=== PATIENT | female | born 1960 | race Caucasian/White ===

== ENCOUNTER 2019-09-01 22:29 | Emergency (ER) | payer MEDICARE, MEDICAID, SELFPAY ==
[2019-09-01 22:31] VITALS: BP 139/76; PULSE 103; RESP 18; TEMP 36.1; O2SAT 98; BMI 32.5
--- NOTE | 2019-09-01 23:27 | EKG12_ITS ---
Test Reason : CP Blood Pressure : / mmHG Vent. Rate : 081 BPM Atrial Rate : 081 BPM P-R Int : 128 ms QRS Dur : 068 ms QT Int : 364 ms P-R-T Axes : 042 -32 011 degrees QTc Int : 422 ms Normal sinus rhythm Left axis deviation Abnormal ECG Confirmed by JACKI REECE, SURYA ([id number]), multimedia editor LIT CARABALLO ([id number]) on 09/04/2019 11:13:49 AM Referred By: WILIAN Confirmed By:SURYA ECHEVERRIA MD
[2019-09-01] MEDS: Aspirin 81 MG TAB.CHEW 324 MG PO (23:41)
--- NOTE | 2019-09-01 23:52 | RAD_ITS ---
STUDY: X-RAY CHEST REASON FOR EXAM: Female, 58 years old. CHEST PAIN X3 DAYS TECHNIQUE: Single AP portable view of the chest. COMPARISON: None. FINDINGS: There are superimposed monitor leads. The lungs are clear and expanded. There is no demonstrated pleural abnormality. Normal size heart. Normal mediastinum and jessa. Normal visualized pulmonary arteries. Normal visualized aortic arch and descending thoracic aorta. Normal visualized thoracic spine. Normal visualized ribs, clavicles, and shoulders. There is no demonstrated abnormality of the visualized soft tissue structures of the upper abdomen. RAD/Chest 1 View (Portable) IMPRESSION: No pulmonary edema, congestive heart failure or confluent pneumonia. Electronically Signed: Pamella Boyer MD at 0:14 EDT , Service support ,
[2019-09-01 23:55] LABS: Absolute Lymphocyte Count 2.09 X10^3/uL (0.83-4.51); Absolute Neutrophil Count 9.7 X10^3/uL (2.0-7.7); Basophil# 0.01 X10^3/uL; Basophil% 0.1 % (0-1); Eosinophil# 0.11 X10^3/uL; Eosinophils% 0.8 % (0-5); Hematocrit 40.6 % (37-47); Hemoglobin 13.4 g/dL (12.0-15.0); Lymphocyte # 2.09 X10^3/ul (4.0); Lymphocyte % 16.1 % (19-41); Mean Corpuscular Hgb 29.7 pg (27.0-32.0); Mean Platelet Vol. 10.4 fl (6.2-12.0); Monocyte# 1.02 X10^3/uL; Monocyte% 7.9 % (0-10); NRBC Flagged by Analyzer 0 % (0-5); Neutrophil # 9.65 X10^3/uL (2.7-7.7); Neutrophil % 74.5 % (47-70); Platelet Count 251 K/mm3 (150-450); RBC Distribution Width CV 13.8 % (11.6-14.6); RBC Distribution Width SD 44.8 fl (35.1-43.9); Red Blood Count 4.51 M/mm3 (4.2-5.4)
[2019-09-02 00:12] LABS: Anion Gap 4 (5-15); BUN 19 mg/dL (7-18); BUN/Creat Ratio 20.8 RATIO (10-20); Calcium,Total 8.7 mg/dL (8.5-10.1); Chloride 104 mmol/L (98-107); Creatinine, Serum 0.92 mg/dL (0.55-1.02); EST Glomerular Filtration Rate 67 mL/min (>60); Est Glom Filt Rate - Afr Amer 81 mL/min (>60); Estimated Creatinine Clearance 47.29 ml/min; Glucose 118 mg/dL (74-106); Potassium 3.8 mmol/L (3.5-5.1); Sodium Level 139 mmol/L (136-145)
[2019-09-02 00:30] VITALS: BP 124/71; PULSE 82; RESP 18; O2SAT 100
[2019-09-02 02:00] VITALS: BP 113/72; PULSE 75; RESP 15; O2SAT 94
--- NOTE | 2019-09-02 02:22 | ED.VISSUMM ---
- ER Visit Summary Date of Service: 09/02/19 Chief Complaint: Chest pain History of Present Illness: The patient is a 58 F who presents with chest pain that is been constant for the past 4 days. Patient states the pain waxes and wanes. Patient states the pain is over the substernal area. Patient states it got worse after taking ibuprofen. Patient denies any nausea or vomiting. Patient denies any diaphoresis. Patient denies any shortness of breath. Patient denies any cough or fever. Patient has a history of hypercholesterolemia but denies any other cardiac risk factors. Patient denies any PE risk factors. Physical Examination: Vital signs are stable. Patient is afebrile. Patient is in no acute distress. Oral mucosa is pink and moist. Neck is supple. Trachea is midline. There is no JVD noted. Heart was regular rate and rhythm. Lungs are clear and equal bilaterally. Abdomen is soft. Bowel sounds are normal. There is no tenderness. There is no rebound or guarding noted. Skin is warm dry. Cranial nerves II through XII are intact. There are no focal motor or sensory deficits noted. Extremities are intact. There is no calf tenderness. Test Results: EKG showed normal sinus rhythm with a rate of 81. There are no acute ST or T wave changes. Portable chest x-ray was obtained. There is no acute cardiopulmonary process. CBC shows a slight leukocytosis of 13.0. Basic metabolic profile was within normal limits. Troponin was normal. Emergency Department Course and Treatment: Patient was feeling better on reevaluation. Patient has a HEART score of 2. Patient has a CAROL ANN risk score of 0. Patient was advised that this is low risk for acute cardiac event. Patient was instructed to follow-up with her primary care physician in 5 to 7 days. Patient understood and was agreeable with the plan. All questions were answered. Disposition: Discharge home Impression: Chest pain This note was generated with [employer] dictation software. It may contain incorrect words, spelling, and punctuation that were not noted in review of the chart prior to signing ED Disposition - Plan for ED Patient: Disposition: Home or Assisted Living Diagnosis: Chest pain of uncertain etiology Instructions: ED Chest Pain Atypical Unkn Cause Referrals: Zane Echevarria [Primary Care Provider] - 5-7 Days
[2019-09-02 02:31] VITALS: BP 113/72; PULSE 74; RESP 18; O2SAT 95
== END 2019-09-02 02:32 | disposition home or self-care (01) ==
PROVIDERS: Emergency Provider Emergency Medicine; PCP Internal Medicine
DX: R07.9 Chest pain, unspecified (principal); E78.00 Pure hypercholesterolemia, unspecified; M19.90 Unspecified osteoarthritis, unspecified site; F31.9 Bipolar disorder, unspecified; Z79.899 Other long term (current) drug therapy
CPT/HCPCS: 71045; 80048; 84484; 85025; 93005; 99285; A4216

== ENCOUNTER → 2020-02-06 | Outpatient (CLI) | payer MEDICARE, BC, MEDICAID, SELFPAY ==
[2020-02-06 10:29] VITALS: BMI 32.5
[2020-02-06 12:31] LABS: T4 Free Direct 0.95 ng/dL (0.76-1.46); Thyroid Stim Hormone (TSH) 2.04 uIU/mL (0.358-3.74)
== END | disposition home or self-care (01) ==
LOC: BIMLAB 10:55
PROVIDERS: PCP Internal Medicine; Referring Provider Internal Medicine Endocrinology, Diabetes & Metabolism; Visit Provider Internal Medicine Endocrinology, Diabetes & Metabolism
DX: E06.3 Autoimmune thyroiditis (principal)
CPT/HCPCS: 36415; 84439; 84443

== ENCOUNTER 2021-01-07 12:53 | Outpatient (RCR) | payer MEDICARE, BC, SELFPAY ==
--- NOTE | 2021-01-07 14:39 | HP.OTEVAL_ITS ---
Patient's Visit Information DANIEL HOFF is a 60 year old F, referred to Occupational Therapy by Dr. Zane Echevarria MD, with a diagnosis of BLE lymphedema. Date of Evaluation: 01/07/21 Occupational Therapist: Marisa Wells, OTR/L, CHT - Subjective This 60 year old female was seen for OT with dx of bilateral LE lymphedema- pt states she has had swelling in her LE since 2018. pt states she wears compression socks knee high but not sure what compression class they are- pt states they are old. Pt states she had compression hose but they were difficult getting them on. pt denies dx of cellulitis. pt states she is retied on disability. pt states she is using a recliner her legs a little better- pt states she did loose about 50# and has gained 30# back- pt states sister has he concerned with her swelling and she would like to know what she can do to mtg her swelling. - Lymphedema (Circumferential Measure) Mid-foot: right 21.5 left 22cm Ankle: right 25cm left 26cm Lower calf: right 35cm left 35cm Largest calf: right 44cm left 44cm Below knee: right 38cm left 39cm - Lower Limb Functional Index Lower Extremity Functional Score: 31 - Goals Demonstrate a 20% reduction in edema by d/c: Yes Demonstrate adequate knowledge of self-massage by 2nd week: Yes Demonstrate adequate knowledge skin care/prec by 2nd week: Yes Demonstrate adequate knowledge therapeutic exercises by d/c: Yes Select approp compression garment w/donning/care/wear by d/c: Yes Voice need to replace compression garment every 4-6mo by dc: Yes - Rehabilitation General Assessment: pt demo with stage 1 lymphedema in bilateral LE. pt skin soft and supple. Pt demo need for skilled OT services 2 visits to ed. pt on lymph ex, manual lymph massage- beneficial exercises and skin care. Rehabilitation Potential: Questionable - Anticipated Interventions Education re Diagnosis, Education re Life-long lymphedema Management, Education re Skin Care and Precautions, Education re Self Massage Techniques, Education re Correct Donning Tech,Care&Wearing Sched Comp Garments, Home Program - Visit Plan TEXT: Thank you for the opportunity to evaluate your patient. For Medicare and Medicare HMO plans, please review the plan of care and approve it. It will need to be FAXED BACK to us at [phone] for Medicare purposes. Please let me know if there are questions or concerns regarding this plan of care. Physician Signature: Date:
--- NOTE | 2021-05-12 09:38 | HP.OT.NRP ---
DANIEL HOFF was seen in my office for initial evaluation on 01/07/21. The following Plan of Care was established for this patient: Anticipated Interventions: Education re Diagnosis, Education re Life-long lymphedema Management, Education re Skin Care and Precautions, Education re Self Massage Techniques, Education re Correct Donning Tech,Care&Wearing Sched Comp Garments, Home Program This patient was last seen in our office 01/07/21. Pertinent comments regarding their Occupational therapy will appear below: pt d/c due to time lapse in services. At this point I will be discontinuing this patient from occupational therapy. I would be happy to see this patient again in the future if found appropriate by the physician. Thank you! Marisa Wells, OTR/L, CHT
== END 2021-01-07 19:00 | disposition home or self-care (01) ==
LOC: OT 12:53
PROVIDERS: PCP Internal Medicine; Referring Provider Internal Medicine; Visit Provider Internal Medicine
DX: I89.0 Lymphedema, not elsewhere classified (principal)
CPT/HCPCS: 97166; 97530

== ENCOUNTER → 2021-04-06 16:01 | Outpatient (CLI) | payer MEDICARE, BC, SELFPAY ==
[2021-04-06 16:45] LABS: Erythrocyte Sedimentation Rate 25 mm/hr (0-30)
[2021-04-06 16:53] LABS: Protein, Urine (Random) < 6.0 mg/dL (<11.9)
[2021-04-06 17:24] LABS: CRP < 2.90 mg/L (0.0-3.0); GGTP 9 U/L (5-55); LDH 187 U/L (84-246)
[2021-04-08 14:51] LABS: Anti-Mitochondrial AB 32.1 Units (0.0-20.0)
[2021-04-08 16:09] LABS: Albumin 4.1 g/dL (2.9-4.4); Alpha-1-Globulins 0.3 g/dL (0.0-0.4); Alpha-2-Globulins 0.8 g/dL (0.4-1.0); Gamma Globulin 0.6 g/dL (0.4-1.8); Immunoglobulin A 162 mg/dL (87-352); Immunoglobulin G 595 mg/dL (586-1602); Immunoglobulin M 134 mg/dL (26-217); PROEL- TOTAL PROTEIN 6.7 g/dL (6.0-8.5)
== END ==
PROVIDERS: PCP Internal Medicine; Visit Provider Internal Medicine Gastroenterology
DX: R74.8 Abnormal levels of other serum enzymes (principal)
CPT/HCPCS: 36415; 82784; 82977; 83516; 83615; 84156; 84165; 85652; 86140; 86334

== ENCOUNTER → 2021-04-16 17:04 | Outpatient (CLI) | payer MEDICARE, BC, SELFPAY ==
--- NOTE | 2021-04-16 17:04 | MRI_ITS ---
STUDY: MRI ABDOMEN AND MRCP WITHOUT CONTRAST REASON FOR EXAM: Female, 60 years old patient with elevated alkaline phosphatase. TECHNIQUE: Standardized fat and water weighted pulse sequences were obtained in all 3 orthogonal planes. Standard MRCP technique was utilized.. 3-D MIP images are included. Multiple images are limited by patient motion. COMPARISON: Prior comparison studies are not available for review at this time. FINDINGS: MRCP: Gall Bladder: Normal with no distention or demonstrated fixed intraluminal filling defect. Cystic duct: Cystic duct was not well visualized. Intrahepatic ducts: Normal visualized intrahepatic ducts with no demonstrated fixed filling defect, dilation or stricture. Common hepatic duct: Normal with no demonstrated fixed filling defect, dilation or stricture. Common bile duct: Normal with no demonstrated fixed filling defect, dilation or stricture. Pancreatic duct: Pancreatic duct was not well visualized. MR ABDOMEN: The visualized lung bases are unremarkable. The visualized portions of the heart are within normal limits. There is hepatomegaly with diffuse hepatic enlargement. Liver measures approximately 20.5 cm in length. Normal spleen. Normal pancreas. Normal bilateral adrenal glands. Normal right kidney. There are multiple left-sided renal cysts with the largest measuring 2.1 cm. There is no obvious hydronephrosis. Normal visualized stomach. There is no obvious dilated bowel or ascites. There is stool visible in the colon. There is non-visualization of the appendix. Normal abdominal aorta. Normal inferior vena cava. Normal retroperitoneum. Normal abdominal wall. Normal osseous structures. MRI/MRCP Abdomen without Contrast IMPRESSION: 1. Hepatomegaly. 2. No sonographic evidence of choledocholithiasis. Electronically Signed: Nalini Stone MD at 6:45 EST , Service support ,
== END ==
PROVIDERS: PCP Internal Medicine; Visit Provider Internal Medicine Gastroenterology
DX: R74.8 Abnormal levels of other serum enzymes (principal)
CPT/HCPCS: 74181

== ENCOUNTER 2021-04-22 09:58 | Outpatient (RCR) | payer SELFPAY | END 2021-05-01 23:59 | LOC: NS 09:58 | PROVIDERS: PCP Internal Medicine | DX: E66.9 Obesity, unspecified (principal) | CPT/HCPCS: 97802 ==

== ENCOUNTER 2021-05-08 14:02 | Outpatient (CLI) | payer MEDICARE, BC, MEDICAID, SELFPAY ==
[2021-05-08 17:24] LABS: AST(SGOT) 17 U/L (15-37); Alanine Aminotransfer ALT/SGPT 27 U/L (13-56); Albumin, Serum 3.6 g/dL (3.2-5.0); Alkaline Phosphatase 119 U/L (45-117); Bilirubin, Direct 0.09 mg/dL (0.00-0.30); CRP < 2.90 mg/L (0.0-3.0); Ferritin 14 ng/mL (8-252); Globulin 3.4 g/dL (2.2-4.2); LDH 171 U/L (84-246)
[2021-05-08 17:27] LABS: Erythrocyte Sedimentation Rate 19 mm/hr (0-30)
[2021-05-08 17:55] LABS: HIV - WCH Non-Reactive (Nonreactive)
[2021-05-08 18:21] LABS: Hemoglobin A1c 5.5 % (3.8-5.6)
[2021-05-13 00:06] LABS: Angiotensin Convert Enzyme 38 U/L (14-82); Ceruloplasmin 26.5 mg/dL (19.0-39.0); Cytoplasmic Ab (C-ANCA) <1:20 titer (Neg:<1:20); HEPATITIS B SURFACE AG Negative (Negative); Hepatitis A IgM Antibody Negative (Negative); Hepatitis B Core AB IgM Negative (Negative)
[2021-05-13 08:50] LABS: AFP, Tumor Marker 1.4 ng/mL (0.0-8.3); Copper, Serum or Plasma 113 ug/dL (80-158); Haptoglobin 230 mg/dL (37-355); Hep C Antibodies 0.1 s/co ratio (0.0-0.9); Perinuclear Ab (P-ANCA) <1:20 titer (Neg:<1:20)
== END 2021-05-08 23:59 | disposition short-term general hospital (02) ==
PROVIDERS: PCP Internal Medicine; Visit Provider Internal Medicine Gastroenterology
DX: R16.0 Hepatomegaly, not elsewhere classified (principal); R74.8 Abnormal levels of other serum enzymes
CPT/HCPCS: 36415; 80074; 80076; 82105; 82164; 82390; 82525; 82728; 83010; 83036; 83615; 85652; 86140; 86256; 86703

== ENCOUNTER 2021-06-09 08:13 | Outpatient (CLI) | payer MEDICARE, BC, SELFPAY ==
--- NOTE | 2021-06-09 08:15 | US_ITS ---
STUDY: ABDOMINAL ULTRASOUND - RIGHT UPPER QUADRANT REASON FOR VISIT: Female, 60 years old hepatomegaly TECHNIQUE: Ultrasound evaluation of the right upper quadrant was performed with real-time and static holder-scale imaging. TECHNICAL QUALITY: Adequate. COMPARISON: None. FINDINGS: Liver: The liver is slightly enlarged and measures 18.5 cm. There is normal echogenicity of the liver. The bile ducts are within normal limits. There is hepatic color flow. The direction of portal flow is hepatopetal. There is no demonstrated mass lesion. Gallbladder: Normal distended gallbladder. The gallbladder wall measures 1.9 mm. There is a negative sonographic Shell''s sign. There is no pericholecystic fluid. There are no gallstones. Common Bile Duct (C.B.D.): The common bile duct measures 3.6 mm. Pancreas: Normal size of the head, body and tail of the pancreas. There is normal echogenicity of the pancreas. There is no demonstrated pancreatic mass or cyst. Right Kidney: Normal size of the right kidney. The right kidney measures 10.4 cm x 5.3 cm x 5.5 cm. Normal renal cortex. The right cortex measures 1.9 cm. There is no demonstrated renal mass or cyst. There is no right hydronephrosis. IMPRESSION: Mild hepatomegaly. Electronically Signed: Ricardo Fowler MD at 9:57 EST , STUDY: ABDOMINAL ULTRASOUND - ELASTOGRAPHY REASON FOR VISIT: Female, 60 years old. Hepatomegaly. TECHNIQUE: Liver stiffness measurements were obtained on a [employer] 85 ultrasound machine using a CA 1-7 probe following the SRU guidelines. 3 measurements were obtained using a 2-D-SWE method. The IQR/M was 23 % suggesting a quality data set. TECHNICAL QUALITY: Adequate. COMPARISON: Comparison is made with prior examination done earlier today. FINDINGS: Liver: Mild hepatomegaly. Median liver stiffness measured 6.1 kPa. US/Liver IMPRESSION: Liver stiffness measures 6.1 kPa compatible with F1 Metavir score. Electronically Signed: Ricardo Fowler MD at 9:59 EST ,
== END 2021-06-09 23:59 | disposition home or self-care (01) ==
LOC: US 08:14
PROVIDERS: PCP Internal Medicine; Referring Provider Internal Medicine Gastroenterology; Visit Provider Internal Medicine Gastroenterology
DX: R16.0 Hepatomegaly, not elsewhere classified (principal)
CPT/HCPCS: 76705; 76981

== ENCOUNTER 2021-06-23 10:30 | Outpatient (RCR) | payer SELFPAY | END 2021-06-29 23:59 | LOC: NS 10:30 | PROVIDERS: PCP Internal Medicine | DX: Z71.3 Dietary counseling and surveillance (principal); E66.9 Obesity, unspecified | CPT/HCPCS: 97803 ==

== ENCOUNTER 2021-07-08 09:24 | Outpatient (RCR) | payer MEDICARE, MEDICAID, BC, SELFPAY | END 2021-07-30 23:59 | LOC: NS 09:24 | PROVIDERS: PCP Internal Medicine | DX: Z71.3 Dietary counseling and surveillance (principal); E66.9 Obesity, unspecified | CPT/HCPCS: 97803 ==

== ENCOUNTER 2021-08-18 09:58 | Outpatient (RCR) | payer MEDICARE, MEDICAID, BC, SELFPAY | END 2021-08-29 23:59 | LOC: NS 09:58 | PROVIDERS: PCP Internal Medicine | DX: Z71.3 Dietary counseling and surveillance (principal); E66.9 Obesity, unspecified; Z68.37 Body mass index [BMI] 37.0-37.9, adult | CPT/HCPCS: 97803 ==

== ENCOUNTER 2021-12-30 14:00 | Outpatient (RCR) | payer MEDICARE, BC, MEDICAID, SELFPAY ==
[2021-12-15 14:09] VITALS: BP 149/66; PULSE 89; RESP 22; TEMP 36.2; BMI 31.7
--- NOTE | 2021-12-15 16:09 | PCM.WC.HP ---
History of Present Illness Date of Service: 12/15/21 Chief Complaint: Swelling in legs bilaterally History of Wound: Patient is a 61-year-old female who presents for swelling in her bilateral lower extremities. She was referred to us by her PCP. She is scheduled to have left knee replacement surgery in January by Dr. Wang. She currently does not have any open wounds. She has a history of ACL repair for left leg, Zuleyka's, arthritis. She currently does not wear compression stockings. Today she denies any fever, chills, nausea or vomiting. She states her appetite is good. Progress of Wound: Bilateral lower extremity edema +2-+3. [facility] Medical History Arthritis Arthritis Bipolar 1 disorder Bipolar disorder Elevated alkaline phosphatase level Enlarged liver Fractures Gastric reflux GERD (gastroesophageal reflux disease) H/O emotional problems High cholesterol History of back problems History of echocardiogram History of edema History of irregular heartbeat History of pain when walking History of stress test Hyperlipidemia Osteopenia Post-menopausal Shortness of breath on exertion Sleep apnea UTI (urinary tract infection) Vision abnormalities Wears glasses Home Medications aripiprazole 15 mg tablet (Abilify) 15 mg PO DAILY 09/02/19 [History Last Taken Unknown] atorvastatin 20 mg tablet 20 mg PO DAILY 09/02/19 [History Last Taken Unknown] benztropine 2 mg tablet 1 mg PO DAILY 09/02/19 [History Last Taken Unknown] calcium carbonate 600 mg calcium (1,500 mg) tablet 630 mg PO TID 09/02/19 [History Last Taken Unknown] omeprazole 20 mg capsule,delayed release 20 mg PO DAILY 09/02/19 [History Last Taken Unknown] ergocalciferol (vitamin D2) 1,250 mcg (50,000 unit) capsule 50,000 unit PO Q21D 02/06/20 [History Last Taken Unknown] mecobalamin (vitamin B12) 1,000 mcg chewable tablet 1,000 mcg PO DAILY 02/03/21 [History Last Taken Unknown] cholecalciferol (vitamin D3) 25 mcg (1,000 unit) capsule (Vitamin D3) 25 mcg PO DAILY 10/02/21 [History Last Taken Unknown] meloxicam 15 mg tablet 15 mg PO DAILY 10/02/21 [History Last Taken Unknown] ursodiol 500 mg tablet 500 mg PO BID 3 months #180 tabs 10/26/21 [Rx Last Taken Unknown] Allergy/AdvReac Type Severity Reaction Status Date / Time lithium Allergy Rash Verified 12/15/21 14:23 Sulfa (Sulfonamide Allergy Angioedema Verified 12/15/21 14:23 Antibiotics) ibuprofen AdvReac CP Verified 12/15/21 14:23 [From NeoProfen (ibuprofen lysn)(PF)] nitrofurantoin AdvReac Nausea/Vom/ Verified 12/15/21 14:23 [From Macrodantin] Diarrhea Family History (Reviewed 12/18/21 @ 16:01 by Brittani Morrow DIRECTOR OF COMMUNICATIONS, DIRECTOR OF COMMUNICATIONS-C) Other Anemia Arthritis Bleeding disorder Cancer Hyperlipidemia Hypertension Thyroid disorder Surgical History (Reviewed 12/18/21 @ 16:01 by Brittani Morrow DIRECTOR OF COMMUNICATIONS, DIRECTOR OF COMMUNICATIONS-C) H/O foot surgery H/O knee surgery History of tonsillectomy Hx of tubal ligation Social History (Reviewed 12/18/21 @ 16:01 by Brittani Morrow DIRECTOR OF COMMUNICATIONS, DIRECTOR OF COMMUNICATIONS-C) Smoking Status: Never smoker alcohol intake: current substance use type: does not use ROS Constitutional Constitutional: Denies fatigue, fever(s), frequent falls or headache(s) Eyes Eyes: Reports requires corrective lenses ENT HEENT: Reports none Cardiovascular Cardiovascular: Reports systems reviewed and no addt'l complaints, except as documented Respiratory/Chest Respiratory/Chest: Reports systems reviewed and no addt'l complaints, except as documented Gastrointestinal Gastrointestinal: Reports heartburn Musculoskeletal Musculoskeletal: Reports systems reviewed and no addt'l complaints, except as documented, arthralgias and difficulty walking Neurologic Neurologic: Reports none Psychiatric Psychiatric: Reports none Endocrine Endocrinology: Reports as per HPI Vital Signs Vital Signs Vital Signs: 12/15/21 14:09 Temperature 97.1 F L Temperature Source Temporal Pulse Rate 89 Respiratory Rate 22 H Blood Pressure 149/66 H Blood Pressure Mean 93 Blood Pressure Source Monitor Weight Weight: 193 lb 7.874 oz Body Mass Index (BMI) 31.7 Physical Exam Const alert, oriented x3 and no apparent distress General Appearance: cooperative HEENT normocephalic Resp normal respiratory effort and normal air movement Auscultation: clear to auscultation bilaterally Cardio regular rate and regular rhythm Extremity normal capillary refill Extremity Narrative: Bilateral lower extremity edema +2. Bilateral pedal pulses +1 Skin no rashes or lesions noted and no wounds Neuro oriented x3 Psych mental status grossly normal Debridement Note Debridement Note No debridement was completed: No debridement was completed today Post-Debridement Measurements and Additional Note: Post-Debridement Measurements/Treatment WC - Nurse 1 - General Ulcer Assessment Start: 12/15/21 13:28 Freq: Status: Active Protocol: LOUANN.DIMITRY Activity Type Activity Date Activity User E-sign Co-sign Detail Recorded Client Recorded Date Recorded By Document 12/15/21 14:09 DL [id number] 12/15/21 14:18 DL Edit Result 12/15/21 14:09 DL (1) [id number] 12/15/21 14:30 DL (1) Height => 5 ft 5.5 in Weight => 193 lb 7.874 oz Weight in Pounds => 193.5 lbs Body Mass Index (BMI) => 31.7 BMI Classification => Obese BSA - Zuleyma => 1.96 12/15/21 14:09 - Today's Visit Information Type of service Initial Visit Arrival Mode Ambulatory Transfer Assistance None Patient Identification Verified (Name & Yes ) Patient Requires Transmission-Based No Precautions Height and Weight Height 5 ft 5.5 in Weight 193 lb 7.874 oz Weight in Pounds 193.5 lbs Body Mass Index (BMI) 31.7 BMI Classification Obese BSA - Zuleyma 1.96 Vital Signs Temperature (97.8 F-99.1 F) 97.1 F L Temperature Source Temporal Pulse Rate (60-100) 89 Pulse Location Monitor Respiratory Rate (12-18) 22 H Respiratory rate source Observation Blood Pressure (90/60-120/80) 149/66 H Blood Pressure Mean 93 Source Monitor History Since Last Visit- (Skip if this is Patient's initial visit) Left Footwear Regular Shoe Right Footwear Regular Shoe Pain Scale: 0-10 Numeric Is Patient Pain Free? Yes Lower Extremity Assessment/ Foot Assessment/ Toe Nail Assessment Left -Posterior Tibial Palpable No -Posterior Tibial Doppler Multiphasic -Dorsalis Pedis Palpable No -Dorsalis Pedis Doppler Multiphasic -Extremity Color Normal -Hair Growth on Legs No -Hair Growth on Toes No -Temperature of Extremity Warm -Capillary Refill Greater than 3 Seconds -Dependent Rubor No -Blanched when Elevated No -Lipodermatosclerosis No -Other Deformity No -Prior Foot Ulcer No -Charcot Joint No -Prior Amputation No -Thick Yes -Discolored Yes -Deformed Yes -Improper Length & Hygeine Yes Right -Posterior Tibial Palpable No -Posterior Tibial Doppler Multiphasic -Dorsalis Pedis Palpable No -Dorsalis Pedis Doppler Multiphasic -Extremity Color Normal -Hair Growth on Legs No -Hair Growth on Toes No -Temperature of Extremity Warm -Capillary Refill Greater than 3 Seconds -Dependent Rubor No -Blanched when Elevated No -Lipodermatosclerosis No -Other Deformity No -Prior Foot Ulcer No -Charcot Joint No -Prior Amputation No -Thick Yes -Discolored Yes -Deformed Yes -Improper Length & Hygeine No Neuropathy Assessment Feet - Top Side and Bottom <Entered> (a) Communication Assessment Preferred language [place] Citizen Able to Read Yes Able to Write Yes Right Hearing Abillity Normal Left Hearing Abillity Normal Visual Assistive Devices Glasses Teaching Assessment Preferences Verbal,Written, Demonstration Barriers to Learning None Readiness To Learn Good Willingness to Engage in Self Management Med Activies Readiness to Engage in Self Management Med Activities Anxiety Level Calm Cooperation Cooperative Perception Coherent Interest in Health Problem Asks Questions Education Importance Acknowledges Need Does Patient Smoke tobacco or other No substances Smoking Status Never smoker Is Patient Diabetic No Functional Assessment Recent Decline in Ability to Perform Denies Any Declines Culture/Jewish/Handle Turner Cultural/Jewish Needs that may affect No Treatment Plan Would you allow our hospital cut press operator to No meet you for the purpose of spiritual/ emotional support? Handle Turner to contact place of latter day No Teaching: Wound Center Control Swelling with Leg Elevation -Person Taught Patient Compression Wraps & Stockings -Person Taught Patient *Welcome to the Wound Center -Person Taught Patient (a) 1 - + WC - Nurse 1 - General Ulcer Measurement Start: 12/15/21 13:28 Freq: Status: Active Protocol: Activity Type Activity Date Activity User E-sign Co-sign Detail Recorded Client Recorded Date Recorded By Document 12/15/21 14:09 DL [id number] 12/15/21 14:18 DL 12/15/21 14:09 Wound Center Nurse 1 Right Calf (cm) 45 Right Ankle (cm) 24 Left Calf (cm) 47 Left Ankle (cm) 26 WC - Nurse 2 - General Ulcer CM Notes Start: 12/15/21 13:28 Freq: Status: Active Protocol: Activity Type Activity Date Activity User E-sign Co-sign Detail Recorded Client Recorded Date Recorded By Document 12/15/21 14:44 [id number] 12/15/21 14:52 12/15/21 14:44 Pain Scale: 0-10 Numeric Is Patient Pain Free? Yes WC - Nurse 3 - General Ulcer D/C NN Start: 12/15/21 13:28 Freq: Status: Active Protocol: Activity Type Activity Date Activity User E-sign Co-sign Detail Recorded Client Recorded Date Recorded By Document 12/15/21 15:04 DL [id number] 12/15/21 15:05 DL 12/15/21 15:04 Wound Care Nurse 3 Left -Tubular Bandage Double Layer -Size of Tubigrip Used Size E -Size E ($) 2 Right -Tubular Bandage Double Layer -Size of Tubigrip Used Size E -Size E ($) 2 Treatment Response Procedure Tolerated Well Pain Scale: 0-10 Numeric Is Patient Pain Free? Yes WC - Visit Discharge Discharge Condition Stable Ambulatory Status Ambulatory Transportation Private Auto Charges/Coding Visit Charges Office Visits / Consults: [id number] OV L4 Est Assessment/Plan Assessment/Plan (1) Bilateral edema of lower extremity: CODE(S): R60.0 - Localized edema (2) Lymphedema: CODE(S): I89.0 - Lymphedema, not elsewhere classified PLAN: Plan Patient was seen and evaluated at the wound center today. She has no open wounds, therefore no debridement was performed. She does have bilateral lower extremity edema/lymphedema. Will order arterial and venous studies to determine exactly how much compression she is able to tolerate. Will start with single-layer Tubigrip's for compression. Follow-up 1 week
[2021-12-23 13:07] VITALS: BP 151/84; PULSE 83; TEMP 36.4; BMI 31.7
[2021-12-23 13:39] VITALS: BMI 31.7
--- NOTE | 2021-12-23 15:57 | PN.PCM_ITS ---
History of Present Illness Date of Service: 12/23/21 Chief Complaint: Swelling in legs bilaterally History of Wound: Patient is a 61-year-old female who presents for swelling in her bilateral lower extremities. She was referred to us by her PCP. She is scheduled to have left knee replacement surgery in January by Dr. Wang. She currently does not have any open wounds. She has a history of ACL repair for left leg, Zuleyka's, arthritis. She currently does not wear compression stockings. ABIs done in office today, 12/23/21, right AURELIO - 1.15, left AURELIO - 1.09. Will start her on 3 M 2 layer wraps for compression. Today she denies any fever, chills, nausea or vomiting. She states her appetite is good. Progress of Wound: Bilateral lower extremity edema +2-+3. Not much improvement with the single layer tubigrip. Objective Data Objective Data Vital Signs: Vital Signs Temp Pulse Resp BP 97.6 F L 83 22 H 151/84 H 12/23/21 13:07 12/23/21 13:07 12/15/21 14:09 12/23/21 13:07 Weight: 193 lb 7.874 oz Body Mass Index (BMI) 31.7 Charges/Coding Visit Charges Office Visits / Consults: 11642 OV L3 Est Physical Exam Const alert and oriented x3 General Appearance: cooperative HEENT normocephalic Resp normal respiratory effort and normal air movement Auscultation: clear to auscultation bilaterally Cardio regular rate and regular rhythm Extremity normal capillary refill Extremity Narrative: Bilateral lower extremity edema +2. Bilateral pedal pulses +1 Skin no rashes or lesions noted and no wounds Neuro oriented x3 Psych mental status grossly normal Debridement Note Debridement Note No debridement was completed: No debridement was completed today Post-Debridement Measurements and Additional Note: Post-Debridement Measurements/Treatment WC - Nurse 1 - General Ulcer Assessment Start: 12/15/21 13:28 Freq: Status: Active Protocol: LOWEXT Activity Type Activity Date Activity User E-sign Co-sign Detail Recorded Client Recorded Date Recorded By Document 12/15/21 14:09 DL [id number] 12/15/21 14:18 DL Edit Result 12/15/21 14:09 DL (1) [id number] 12/15/21 14:30 DL Document 12/23/21 13:07 KR [id number] 12/23/21 13:09 KR Document 12/23/21 13:39 AK [id number] 12/23/21 13:39 AK (1) Height => 5 ft 5.5 in Weight => 193 lb 7.874 oz Weight in Pounds => 193.5 lbs Body Mass Index (BMI) => 31.7 BMI Classification => Obese BSA - Zuleyma => 1.96 12/15/21 12/23/21 12/23/21 14:09 13:07 13:39 WC - Today's Visit Information Type of service Initial Visit Follow-up Visit (Physician/MACHINE SHOP INSTRUCTOR ) Arrival Mode Ambulatory Ambulatory Transfer Assistance None Patient Identification Verified (Name & Yes Yes ) Patient Requires Transmission-Based No Precautions Height and Weight Height 5 ft 5.5 in Weight 193 lb 7.874 oz Weight in Pounds 193.5 lbs Body Mass Index (BMI) 31.7 31.7 31.7 BMI Classification Obese Obese Obese BSA - Zuleyma 1.96 Vital Signs Temperature (97.8 F-99.1 F) 97.1 F L 97.6 F L Temperature Source Temporal Temporal Pulse Rate (60-100) 89 83 Pulse Location Monitor Monitor Respiratory Rate (12-18) 22 H Respiratory rate source Observation Blood Pressure (90/60-120/80) 149/66 H 151/84 H Blood Pressure Mean (mm Hg) 93 106 Source Monitor Monitor Position Semi-Fowlers Blood Pressure Location Right Arm History Since Last Visit- (Skip if this is Patient's initial visit) Have you changed medications since your No last visit? Any new allergies or adverse reactions No Had a fall/change in ADL's that may No increase risk of falls Signs or symptoms of abuse and/or No neglect since last visit Have you been in the hospital since your No last visit? Has dressing in place as prescribed No Has compression in place as prescribed Yes Has offloadiing in place as prescribed N/A Experienced any changes in pain level or No management Left Footwear Regular Shoe Regular Shoe Right Footwear Regular Shoe Regular Shoe Pain Scale: 0-10 Numeric Is Patient Pain Free? Yes Yes Yes Lower Extremity Assessment/ Foot Assessment/ Toe Nail Assessment Left -Posterior Tibial Palpable No -Posterior Tibial Doppler Multiphasic -Dorsalis Pedis Palpable No -Dorsalis Pedis Doppler Multiphasic -Extremity Color Normal -Hair Growth on Legs No -Hair Growth on Toes No -Temperature of Extremity Warm -Capillary Refill Greater than 3 Seconds -Dependent Rubor No -Blanched when Elevated No -Lipodermatosclerosis No -Other Deformity No -Prior Foot Ulcer No -Charcot Joint No -Prior Amputation No -Thick Yes -Discolored Yes -Deformed Yes -Improper Length & Hygeine Yes Right -Posterior Tibial Palpable No -Posterior Tibial Doppler Multiphasic -Dorsalis Pedis Palpable No -Dorsalis Pedis Doppler Multiphasic -Extremity Color Normal -Hair Growth on Legs No -Hair Growth on Toes No -Temperature of Extremity Warm -Capillary Refill Greater than 3 Seconds -Dependent Rubor No -Blanched when Elevated No -Lipodermatosclerosis No -Other Deformity No -Prior Foot Ulcer No -Charcot Joint No -Prior Amputation No -Thick Yes -Discolored Yes -Deformed Yes -Improper Length & Hygeine No Neuropathy Assessment Feet - Top Side and Bottom <Entered> (a) Communication Assessment Preferred language Armenian Able to Read Yes Able to Write Yes Right Hearing Abillity Normal Left Hearing Abillity Normal Visual Assistive Devices Glasses Teaching Assessment Preferences Verbal,Written, Demonstration Barriers to Learning None Readiness To Learn Good Willingness to Engage in Self Management Med Activies Readiness to Engage in Self Management Med Activities Anxiety Level Calm Cooperation Cooperative Perception Coherent Interest in Health Problem Asks Questions Education Importance Acknowledges Need Does Patient Smoke tobacco or other No substances Smoking Status Never smoker Is Patient Diabetic No Functional Assessment Recent Decline in Ability to Perform Denies Any Declines Culture/Bahai/Injection Molding Engineer Cultural/Bahai Needs that may affect No Treatment Plan Would you allow our hospital shipyard painting supervisor to No meet you for the purpose of spiritual/ emotional support? Injection Molding Engineer to contact place of moravian No Teaching: Wound Center Control Swelling with Leg Elevation -Person Taught Patient Compression Wraps & Stockings -Person Taught Patient *Welcome to the Wound Center -Person Taught Patient (a) 1 - + WC - Nurse 1 - General Ulcer Measurement Start: 12/15/21 13:28 Freq: Status: Active Protocol: Activity Type Activity Date Activity User E-sign Co-sign Detail Recorded Client Recorded Date Recorded By Document 12/15/21 14:09 DL [id number] 12/15/21 14:18 DL Document 12/23/21 13:07 KR [id number] 12/23/21 13:09 KR 12/15/21 12/23/21 14:09 13:07 Wound Center Nurse 1 Right Calf (cm) 45 48.8 Right Ankle (cm) 24 29 Left Calf (cm) 47 49.2 Left Ankle (cm) 26 28.8 WC - Nurse 2 - General Ulcer CM Notes Start: 12/15/21 13:28 Freq: Status: Active Protocol: Activity Type Activity Date Activity User E-sign Co-sign Detail Recorded Client Recorded Date Recorded By Document 12/15/21 14:44 JF [id number] 12/15/21 14:52 JF Document 12/23/21 13:34 MW [id number] 12/23/21 13:36 MW 12/15/21 12/23/21 14:44 13:34 Pain Scale: 0-10 Numeric Is Patient Pain Free? Yes Yes WC - Nurse 3 - General Ulcer D/C NN Start: 12/15/21 13:28 Freq: Status: Active Protocol: Activity Type Activity Date Activity User E-sign Co-sign Detail Recorded Client Recorded Date Recorded By Document 12/15/21 15:04 DL [id number] 12/15/21 15:05 DL Document 12/23/21 14:26 KR [id number] 12/23/21 14:26 KR 12/15/21 12/23/21 15:04 14:26 Wound Care Nurse 3 Left -Multi-Layered Wrap Application Multi-Layer Comp - Bilat ($ ) -Tubular Bandage Double Layer -Size of Tubigrip Used Size E -Size E ($) 2 Right -Tubular Bandage Double Layer -Size of Tubigrip Used Size E -Size E ($) 2 Treatment Response Procedure Tolerated Well Pain Scale: 0-10 Numeric Is Patient Pain Free? Yes Yes WC - Visit Discharge Discharge Condition Stable Stable Ambulatory Status Ambulatory Ambulatory Transportation Private Auto Private Auto Accompanied by Assessment/Plan Assessment/Plan (1) Bilateral edema of lower extremity: CODE(S): R60.0 - Localized edema (2) Lymphedema: CODE(S): I89.0 - Lymphedema, not elsewhere classified PLAN: Plan Patient was seen and evaluated at the wound center today. She has no open wounds, therefore no debridement was performed. She does have bilateral lower extremity edema/lymphedema. ABIs done in office today, 12/23/21, right AURELIO - 1.15, left AURELIO - 1.09. Will start her on 3 M 2 layer wraps for compression. Follow up on Tuesday for a nurse's visit to have 3M 2 layer wraps redone. Follow- up 1 week with me.
[2021-12-25 13:18] VITALS: BP 139/69; BMI 31.7
[2021-12-30 13:56] VITALS: BP 143/82; PULSE 88; TEMP 36.5; BMI 31.7
--- NOTE | 2021-12-30 16:07 | PCM.WC.PN ---
History of Present Illness Date of Service: 12/30/21 Chief Complaint: Swelling in legs bilaterally History of Wound: Patient is a 61-year-old female who presents for swelling in her bilateral lower extremities. She was referred to us by her PCP. She is scheduled to have left knee replacement surgery in January by Dr. Wang. She currently does not have any open wounds. She has a history of ACL repair for left leg, Zuleyka's, arthritis. She currently does not wear compression stockings. ABIs done in office today, 12/23/21, right AURELIO - 1.15, left AURELIO - 1.09. Will start her on 3 M 2 layer wraps for compression. Today she denies any fever, chills, nausea or vomiting. She states her appetite is good. Progress of Wound: Bilateral lower extremity edema +2. Will continue the 3M 2 layer wraps until her Juxtalite compression stockings come in. Objective Data Objective Data Vital Signs: Vital Signs Temp Pulse Resp BP 97.7 F L 88 22 H 143/82 H 12/30/21 13:56 12/30/21 13:56 12/15/21 14:09 12/30/21 13:56 Weight: 193 lb 7.874 oz Body Mass Index (BMI) 31.7 Charges/Coding Visit Charges Office Visits / Consults: [id number] OV L3 Est Physical Exam Const alert and oriented x3 General Appearance: cooperative HEENT normocephalic Resp normal respiratory effort and normal air movement Cardio regular rate Extremity normal capillary refill Extremity Narrative: Bilateral lower extremity edema +2. Bilateral pedal pulses +1 Skin no rashes or lesions noted and no wounds Neuro oriented x3 Psych mental status grossly normal Debridement Note Debridement Note No debridement was completed: No debridement was completed today Post-Debridement Measurements and Additional Note: Post-Debridement Measurements/Treatment LOUANN - Nurse 1 - General Ulcer Assessment Start: 12/15/21 13:28 Freq: Status: Active Protocol: ENOCH Activity Type Activity Date Activity User E-sign Co-sign Detail Recorded Client Recorded Date Recorded By Document 12/15/21 14:09 DL [id number] 12/15/21 14:18 DL Edit Result 12/15/21 14:09 DL (1) [id number] 12/15/21 14:30 DL Document 12/23/21 13:07 KR [id number] 12/23/21 13:09 KR Document 12/23/21 13:39 AK [id number] 12/23/21 13:39 AK Document 12/25/21 13:18 AK [id number] 12/25/21 13:21 AK Document 12/30/21 13:56 BMF [id number] 12/30/21 14:02 BMF (1) Height => 5 ft 5.5 in Weight => 193 lb 7.874 oz Weight in Pounds => 193.5 lbs Body Mass Index (BMI) => 31.7 BMI Classification => Obese BSA - Zuleyma => 1.96 12/15/21 12/23/21 12/23/21 14:09 13:07 13:39 WC - Today's Visit Information Type of service Initial Visit Follow-up Visit (Physician/COOK'S ASSISTANT ) Arrival Mode Ambulatory Ambulatory Transfer Assistance None Patient Identification Verified (Name & Yes Yes ) Patient Requires Transmission-Based No Precautions Safety Precautions Height and Weight Height 5 ft 5.5 in Weight 193 lb 7.874 oz Weight in Pounds 193.5 lbs Body Mass Index (BMI) 31.7 31.7 31.7 BMI Classification Obese Obese Obese BSA - Zuleyma 1.96 Vital Signs Temperature (97.8 F-99.1 F) 97.1 F L 97.6 F L Temperature Source Temporal Temporal Pulse Rate (60-100) 89 83 Pulse Location Monitor Monitor Respiratory Rate (12-18) 22 H Respiratory rate source Observation Blood Pressure (90/60-120/80) 149/66 H 151/84 H Blood Pressure Mean (mm Hg) 93 106 Source Monitor Monitor Position Semi-Fowlers Blood Pressure Location Right Arm History Since Last Visit- (Skip if this is Patient's initial visit) Have you changed medications since your No last visit? Any new allergies or adverse reactions No Had a fall/change in ADL's that may No increase risk of falls Signs or symptoms of abuse and/or No neglect since last visit Have you been in the hospital since your No last visit? Has dressing in place as prescribed No Has compression in place as prescribed Yes Has offloadiing in place as prescribed N/A Experienced any changes in pain level or No management Left Footwear Regular Shoe Regular Shoe Right Footwear Regular Shoe Regular Shoe Pain Scale: 0-10 Numeric Is Patient Pain Free? Yes Yes Yes Lower Extremity Assessment/ Foot Assessment/ Toe Nail Assessment Left -Posterior Tibial Palpable No -Posterior Tibial Doppler Multiphasic -Dorsalis Pedis Palpable No -Dorsalis Pedis Doppler Multiphasic -Extremity Color Normal -Hair Growth on Legs No -Hair Growth on Toes No -Temperature of Extremity Warm -Capillary Refill Greater than 3 Seconds -Dependent Rubor No -Blanched when Elevated No -Lipodermatosclerosis No -Other Deformity No -Prior Foot Ulcer No -Charcot Joint No -Prior Amputation No -Thick Yes -Discolored Yes -Deformed Yes -Improper Length & Hygeine Yes Right -Posterior Tibial Palpable No -Posterior Tibial Doppler Multiphasic -Dorsalis Pedis Palpable No -Dorsalis Pedis Doppler Multiphasic -Extremity Color Normal -Hair Growth on Legs No -Hair Growth on Toes No -Temperature of Extremity Warm -Capillary Refill Greater than 3 Seconds -Dependent Rubor No -Blanched when Elevated No -Lipodermatosclerosis No -Other Deformity No -Prior Foot Ulcer No -Charcot Joint No -Prior Amputation No -Thick Yes -Discolored Yes -Deformed Yes -Improper Length & Hygeine No Neuropathy Assessment Feet - Top Side and Bottom <Entered> (a) Communication Assessment Preferred language Tajik Able to Read Yes Able to Write Yes Right Hearing Abillity Normal Left Hearing Abillity Normal Visual Assistive Devices Glasses Teaching Assessment Preferences Verbal,Written, Demonstration Barriers to Learning None Readiness To Learn Good Willingness to Engage in Self Management Med Activies Readiness to Engage in Self Management Med Activities Anxiety Level Calm Cooperation Cooperative Perception Coherent Interest in Health Problem Asks Questions Education Importance Acknowledges Need Does Patient Smoke tobacco or other No substances Smoking Status Never smoker Is Patient Diabetic No Functional Assessment Recent Decline in Ability to Perform Denies Any Declines Culture/Adventist/Commissary Helper Cultural/Adventist Needs that may affect No Treatment Plan Would you allow our hospital publishing manager to No meet you for the purpose of spiritual/ emotional support? Commissary Helper to contact place of nondenominational No Teaching: Wound Center Control Swelling with Leg Elevation -Person Taught Patient Compression Wraps & Stockings -Person Taught Patient *Welcome to the Wound Center -Person Taught Patient 12/25/21 12/30/21 13:18 13:56 WC - Today's Visit Information Type of service Nurse-only Follow-up Visit Visit (Physician/COOK'S ASSISTANT ) Arrival Mode Ambulatory Ambulatory Transfer Assistance Patient Identification Verified (Name & Yes Yes ) Patient Requires Transmission-Based Yes Precautions Safety Precautions NA Height and Weight Height Weight Weight in Pounds Body Mass Index (BMI) 31.7 31.7 BMI Classification Obese Obese BSA - Zuleyma Vital Signs Temperature (97.8 F-99.1 F) 97.7 F L Temperature Source Temporal Pulse Rate (60-100) 88 Pulse Location Monitor Respiratory Rate (12-18) Respiratory rate source Blood Pressure (90/60-120/80) 139/69 H 143/82 H Blood Pressure Mean (mm Hg) 92 102 Source Monitor Monitor Position Semi-Fowlers Blood Pressure Location Left Arm History Since Last Visit- (Skip if this is Patient's initial visit) Have you changed medications since your No No last visit? Any new allergies or adverse reactions No No Had a fall/change in ADL's that may No No increase risk of falls Signs or symptoms of abuse and/or No No neglect since last visit Have you been in the hospital since your No No last visit? Has dressing in place as prescribed Yes Yes Has compression in place as prescribed Yes Yes Has offloadiing in place as prescribed N/A N/A Experienced any changes in pain level or No No management Left Footwear Regular Shoe Regular Shoe Right Footwear Regular Shoe Regular Shoe Pain Scale: 0-10 Numeric Is Patient Pain Free? Yes Yes Lower Extremity Assessment/ Foot Assessment/ Toe Nail Assessment Left -Posterior Tibial Palpable -Posterior Tibial Doppler -Dorsalis Pedis Palpable -Dorsalis Pedis Doppler -Extremity Color -Hair Growth on Legs -Hair Growth on Toes -Temperature of Extremity -Capillary Refill -Dependent Rubor -Blanched when Elevated -Lipodermatosclerosis -Other Deformity -Prior Foot Ulcer -Charcot Joint -Prior Amputation -Thick -Discolored -Deformed -Improper Length & Hygeine Right -Posterior Tibial Palpable -Posterior Tibial Doppler -Dorsalis Pedis Palpable -Dorsalis Pedis Doppler -Extremity Color -Hair Growth on Legs -Hair Growth on Toes -Temperature of Extremity -Capillary Refill -Dependent Rubor -Blanched when Elevated -Lipodermatosclerosis -Other Deformity -Prior Foot Ulcer -Charcot Joint -Prior Amputation -Thick -Discolored -Deformed -Improper Length & Hygeine Neuropathy Assessment Feet - Top Side and Bottom Communication Assessment Preferred language Able to Read Able to Write Right Hearing Abillity Left Hearing Abillity Visual Assistive Devices Teaching Assessment Preferences Barriers to Learning Readiness To Learn Willingness to Engage in Self Management Activies Readiness to Engage in Self Management Activities Anxiety Level Cooperation Perception Interest in Health Problem Education Importance Does Patient Smoke tobacco or other substances Smoking Status Is Patient Diabetic Functional Assessment Recent Decline in Ability to Perform Culture/Adventist/Commissary Helper Cultural/Adventist Needs that may affect Treatment Plan Would you allow our hospital publishing manager to meet you for the purpose of spiritual/ emotional support? Commissary Helper to contact place of nondenominational Teaching: Wound Center Control Swelling with Leg Elevation -Person Taught Compression Wraps & Stockings -Person Taught *Welcome to the Wound Center -Person Taught (a) 1 - + WC - Nurse 1 - General Ulcer Measurement Start: 12/15/21 13:28 Freq: Status: Active Protocol: Activity Type Activity Date Activity User E-sign Co-sign Detail Recorded Client Recorded Date Recorded By Document 12/15/21 14:09 DL [id number] 12/15/21 14:18 DL Document 12/23/21 13:07 KR [id number] 12/23/21 13:09 KR Document 12/30/21 13:56 BMF [id number] 12/30/21 14:02 BMF 12/15/21 12/23/21 12/30/21 14:09 13:07 13:56 Wound Center Nurse 1 Right Calf (cm) 45 48.8 44.8 Right Ankle (cm) 24 29 24.1 Left Calf (cm) 47 49.2 44.1 Left Ankle (cm) 26 28.8 24.7 WC - Nurse 2 - General Ulcer CM Notes Start: 12/15/21 13:28 Freq: Status: Active Protocol: Activity Type Activity Date Activity User E-sign Co-sign Detail Recorded Client Recorded Date Recorded By Document 12/15/21 14:44 JF [id number] 12/15/21 14:52 JF Document 12/23/21 13:34 MW [id number] 12/23/21 13:36 MW Document 12/30/21 14:47 MW [id number] 12/30/21 14:58 MW 12/15/21 12/23/21 12/30/21 14:44 13:34 14:47 Pain Scale: 0-10 Numeric Is Patient Pain Free? Yes Yes Yes WC - Nurse 3 - General Ulcer D/C NN Start: 12/15/21 13:28 Freq: Status: Active Protocol: Activity Type Activity Date Activity User E-sign Co-sign Detail Recorded Client Recorded Date Recorded By Document 12/15/21 15:04 DL [id number] 12/15/21 15:05 DL Document 12/23/21 14:26 KR [id number] 12/23/21 14:26 KR Document 12/25/21 13:18 AK [id number] 12/25/21 13:21 AK Document 12/30/21 15:04 BMF [id number] 12/30/21 15:05 BMF 12/15/21 12/23/21 12/25/21 15:04 14:26 13:18 Wound Care Nurse 3 Left -Lotion applied to leg before No compression wrap -Multi-Layered Wrap Application Multi-Layer Multi-Layer Comp - Bilat ($ Comp - Bilat ($ ) ) -Tubular Bandage Double Layer -Size of Tubigrip Used Size E -Size E ($) 2 -Other Right -Multi-Layered Wrap Application -Tubular Bandage Double Layer -Size of Tubigrip Used Size E -Size E ($) 2 -Other Treatment Response Procedure Tolerated Well Vital Signs Blood Pressure (90/60-120/80) 139/69 H Blood Pressure Mean (mm Hg) 92 Source Monitor Pain Scale: 0-10 Numeric Is Patient Pain Free? Yes Yes Yes WC - Visit Discharge Discharge Condition Stable Stable Stable Ambulatory Status Ambulatory Ambulatory Transportation Private Auto Private Auto Private Auto Accompanied by Medication Reconcilliation completed & Yes provided to patient/care provider Clinical Summary of Care Provided Yes 12/30/21 15:04 Wound Care Nurse 3 Left -Lotion applied to leg before compression wrap -Multi-Layered Wrap Application Multi-Layer Comp - Left ($) -Tubular Bandage -Size of Tubigrip Used -Size E ($) -Other 3M PER AK FRONT END DEVELOPER JAVASCRIPT HTML CSS Right -Multi-Layered Wrap Application Multi-Layer Comp - Right ($ ) -Tubular Bandage -Size of Tubigrip Used -Size E ($) -Other 3M PER AK FRONT END DEVELOPER JAVASCRIPT HTML CSS Treatment Response Procedure Tolerated Well Vital Signs Blood Pressure (90/60-120/80) Blood Pressure Mean (mm Hg) Source Pain Scale: 0-10 Numeric Is Patient Pain Free? Yes WC - Visit Discharge Discharge Condition Stable Ambulatory Status Ambulatory Transportation Private Auto Accompanied by Medication Reconcilliation completed & provided to patient/care provider Clinical Summary of Care Provided Assessment/Plan Assessment/Plan (1) Bilateral edema of lower extremity: CODE(S): R60.0 - Localized edema (2) Lymphedema: CODE(S): I89.0 - Lymphedema, not elsewhere classified PLAN: Plan Patient was seen and evaluated at the wound center today. She has no open wounds, therefore no debridement was performed. She does have bilateral lower extremity edema/lymphedema. ABIs done in office on 12/23/21, right AURELIO - 1.15, left AURELIO - 1.09. Will start her on 3 M 2 layer wraps for compression. Follow up one week or come in sooner for a nurses visit if she obtains her compression stockings to be shown how to put them on.
== END 2021-12-30 23:59 | disposition home or self-care (01) ==
LOC: WC 14:00
PROVIDERS: PCP Internal Medicine; Visit Provider Nurse Practitioner Family
DX: R60.0 Localized edema (principal); F31.9 Bipolar disorder, unspecified; E78.5 Hyperlipidemia, unspecified; I89.0 Lymphedema, not elsewhere classified; G62.9 Polyneuropathy, unspecified; E78.00 Pure hypercholesterolemia, unspecified
CPT/HCPCS: 29581; 99213; G0463

== ENCOUNTER 2022-01-07 13:39 | Outpatient (RCR) | payer MEDICARE, BC, MEDICAID, SELFPAY ==
[2021-12-31 00:44] VITALS: BP 143/82; PULSE 88; RESP 22; TEMP 36.5; BMI 31.7
[2022-01-07 13:40] VITALS: BP 152/72; PULSE 88; RESP 18; TEMP 37.2; BMI 31.7
--- NOTE | 2022-01-07 15:07 | PCM.WC.PN ---
History of Present Illness Date of Service: 01/07/22 Chief Complaint: Swelling in legs bilaterally History of Wound: Patient is a 61-year-old female who presents for swelling in her bilateral lower extremities. She was referred to us by her PCP. She is scheduled to have left knee replacement surgery in January by Dr. Wang. She currently does not have any open wounds. She has a history of ACL repair for left leg, Zuleyka's, arthritis. She currently does not wear compression stockings. ABIs done in office today, 12/23/21, right AURELIO - 1.15, left AUREILO - 1.09. Will start her on 3 M 2 layer wraps for compression. Today she denies any fever, chills, nausea or vomiting. She states her appetite is good. Progress of Wound: Bilateral lower extremity edema is +1-+2, non pitting, which is improved compared to when she first started here. She has her Juxtalite stockings which we will teach her how to use today. Objective Data Objective Data Vital Signs: Vital Signs Temp Pulse Resp BP O2 Del Method 99 F 88 18 152/72 H Room Air 01/07/22 13:40 01/07/22 13:40 01/07/22 13:40 01/07/22 13:40 01/07/22 13:40 Oxygen Delivery Method Room Air Weight: 193 lb 7.874 oz Body Mass Index (BMI) 31.7 Charges/Coding Visit Charges Office Visits / Consults: 00885 OV L3 Est Physical Exam Const alert and oriented x3 General Appearance: cooperative HEENT normocephalic Resp normal respiratory effort and normal air movement Cardio regular rate Extremity normal capillary refill Extremity Narrative: Bilateral lower extremity edema +2. Bilateral pedal pulses +1 Skin no rashes or lesions noted and no wounds Neuro oriented x3 Psych mental status grossly normal Debridement Note Debridement Note No debridement was completed: No debridement was completed today Post-Debridement Measurements and Additional Note: Post-Debridement Measurements/Treatment WC - Nurse 1 - General Ulcer Assessment Start: 01/07/22 13:40 Freq: Status: Active Protocol: LOUANN.BRIANEXT Activity Type Activity Date Activity User E-sign Co-sign Detail Recorded Client Recorded Date Recorded By Document 01/07/22 13:40 [facility] [id number] 01/07/22 13:51 [facility] 01/07/22 13:40 - Today's Visit Information Type of service Follow-up Visit (Physician/MANAGER DELIVERY ) Arrival Mode Ambulatory Transfer Assistance None Accompanied by Patient Identification Verified (Name & Yes ) Patient Requires Transmission-Based No Precautions Height and Weight Body Mass Index (BMI) 31.7 BMI Classification Obese Vital Signs Temperature (97.8 F-99.1 F) 99 F Temperature Source Temporal Pulse Rate (60-100) 88 Pulse Location Monitor Respiratory Rate (12-18) 18 Respiratory rate source Observation Oxygen Delivery Method Room Air Blood Pressure (90/60-120/80) 152/72 H Blood Pressure Mean (mm Hg) 98 Source Monitor Position Sitting Blood Pressure Location Left Arm History Since Last Visit- (Skip if this is Patient's initial visit) Have you changed medications since your No last visit? Any new allergies or adverse reactions No Had a fall/change in ADL's that may No increase risk of falls Signs or symptoms of abuse and/or No neglect since last visit Have you been in the hospital since your No last visit? Has compression in place as prescribed Yes Has offloadiing in place as prescribed N/A Experienced any changes in pain level or No management Left Footwear Regular Shoe Right Footwear Regular Shoe Pain Scale: 0-10 Numeric Is Patient Pain Free? Yes - Nurse 1 - General Ulcer Measurement Start: 01/07/22 13:40 Freq: Status: Active Protocol: Activity Type Activity Date Activity User E-sign Co-sign Detail Recorded Client Recorded Date Recorded By Document 01/07/22 13:40 [facility] [id number] 01/07/22 13:51 [facility] 01/07/22 13:40 Wound Center Nurse 1 Lower Limb Edema Present Yes Right Calf (cm) 47 Right Ankle (cm) 29.7 Left Calf (cm) 47.5 Left Ankle (cm) 32.8 - Nurse 2 - General Ulcer CM Notes Start: 01/07/22 13:40 Freq: Status: Active Protocol: Activity Type Activity Date Activity User E-sign Co-sign Detail Recorded Client Recorded Date Recorded By Document 01/07/22 14:10 [id number] 01/07/22 14:13 MW 01/07/22 14:10 Pain Scale: 0-10 Numeric Is Patient Pain Free? Yes - Nurse 3 - General Ulcer D/C NN Start: 01/07/22 13:40 Freq: Status: Active Protocol: Activity Type Activity Date Activity User E-sign Co-sign Detail Recorded Client Recorded Date Recorded By Document 01/07/22 14:26 [facility] [id number] 01/07/22 14:26 [facility] 01/07/22 14:26 Wound Care Nurse 3 BLE -Other EDUCATED ON APPLICATION OF NEW JUXTALITES Treatment Response Procedure Tolerated Well Pain Scale: 0-10 Numeric Is Patient Pain Free? Yes WC - Visit Discharge Discharge Condition Stable Ambulatory Status Ambulatory Transportation Private Auto Accompanied by Assessment/Plan Assessment/Plan (1) Bilateral edema of lower extremity: CODE(S): R60.0 - Localized edema (2) Lymphedema: CODE(S): I89.0 - Lymphedema, not elsewhere classified PLAN: Plan Patient was seen and evaluated at the wound center today. She has no open wounds, therefore no debridement was performed. She does have bilateral lower extremity edema/lymphedema. ABIs done in office on 12/23/21, right AURELIO - 1.15, left AURELIO - 1.09. She has received her Juxtilyte stockings and she has been instructed how to use them. Instructed to continue to keep legs elevated when sitting and sleeping in a bed. Discharged from the wound center. Follow up as needed.
== END 2022-01-07 15:16 | disposition home or self-care (01) ==
LOC: WC 13:39
PROVIDERS: PCP Internal Medicine; Visit Provider Nurse Practitioner Family
DX: I89.0 Lymphedema, not elsewhere classified (principal); R60.0 Localized edema; M19.90 Unspecified osteoarthritis, unspecified site
CPT/HCPCS: 99213; G0463

== ENCOUNTER → 2022-02-04 | Outpatient (CLI) | payer MEDICARE, BC, MEDICAID, SELFPAY ==
--- NOTE | 2022-02-04 16:47 | CT_ITS ---
STUDY: CT OF THE RIGHT LOWER EXTREMITY WITHOUT CONTRAST REASON FOR EXAM: Female, 61 years old. Preoperative evaluation. RADIATION DOSAGE (If Supplied By Facility): CTDIvol = ( 19.15 ) mGy, DLP = ( 2436.43 ) mGycm. Individualized dose optimization techniques were used for this CT.? TECHNIQUE: Contiguous axial images of the right hip, knee and ankle were obtained without contrast. Coronal and sagittal reconstruction and bone and soft tissue algorithm images were obtained. COMPARISON: None. FINDINGS: Osteopenia. Mild arthrosis of the symphysis pubis. Mild arthrosis of the right hip. Mild arthrosis of the medial femorotibial compartment with osteophytes and subchondral sclerosis. Mild arthrosis of the lateral femorotibial compartment with osteophyte formation. Mild arthrosis of the patellofemoral compartment with osteophyte formation. Mild arthrosis of the tibiotalar and subtalar joints. Inferior calcaneal spur. CT/Extremity Lower without Contra IMPRESSION: Osteopenia with osteoarthritic changes as described. No other significant abnormality. Electronically Signed: Celio Hunter, at 10:53 EDT ,
== END | disposition home or self-care (01) ==
LOC: CT 16:44
PROVIDERS: PCP Internal Medicine; Visit Provider Orthopaedic Surgery
DX: M17.11 Unilateral primary osteoarthritis, right knee (principal)
CPT/HCPCS: 73700

== ENCOUNTER → 2022-02-12 | Outpatient (CLI) | payer MEDICARE, BC, MEDICAID, SELFPAY ==
[2022-02-12 10:43] LABS: Erythrocyte Sedimentation Rate 19 mm/hr (0-30)
[2022-02-12 10:49] LABS: Prothrombin Time (Protime)PT. 12.7 SECONDS (11.7-14.9)
[2022-02-12 11:36] LABS: ALB/GLOB Ratio 1.2 RATIO (0.9-2.4); AST(SGOT) 19 U/L (15-37); Alanine Aminotransfer ALT/SGPT 24 U/L (13-56); Albumin, Serum 3.7 g/dL (3.2-5.0); Alkaline Phosphatase 47 U/L (45-117); Anion Gap 5 (5-15); BUN 15 mg/dL (7-18); CRP 2.99 mg/L (0.0-3.0); Calcium,Total 9.1 mg/dL (8.5-10.1); Chloride 103 mmol/L (98-107); Creatinine, Serum 0.79 mg/dL (0.55-1.02); EST Glomerular Filtration Rate 78 mL/min (>60); Est Glom Filt Rate - Afr Amer 95 mL/min (>60); GGTP 33 U/L (5-55); Globulin 3.1 g/dL (2.2-4.2); Glucose 108 mg/dL (74-106); LDH 215 U/L (84-246); Potassium 3.9 mmol/L (3.5-5.1); Protein, Total 6.8 g/dL (6.4-8.2); Sodium Level 140 mmol/L (136-145)
== END | disposition home or self-care (01) ==
LOC: LAB 09:03
PROVIDERS: PCP Internal Medicine; Referring Provider Nurse Practitioner Adult Health; Visit Provider Nurse Practitioner Adult Health
DX: K74.3 Primary biliary cirrhosis (principal); R74.8 Abnormal levels of other serum enzymes; R16.0 Hepatomegaly, not elsewhere classified
CPT/HCPCS: 36415; 80053; 82977; 83615; 85610; 85652; 86140

== ENCOUNTER 2022-02-15 13:25 | Observation (INO) | payer MEDICARE, BC, MEDICAID, SELFPAY ==
--- NOTE | 2022-02-11 15:11 | CASEMGMT ---
tc for presurgical assessment. Pt. unable to complete assessment via phone at this time.
--- NOTE | 2022-02-12 09:01 | EKG12_ITS ---
Test Reason : PRE-OP Blood Pressure : / mmHG Vent. Rate : 076 BPM Atrial Rate : 076 BPM P-R Int : 134 ms QRS Dur : 066 ms QT Int : 358 ms P-R-T Axes : 025 -20 003 degrees QTc Int : 402 ms Normal sinus rhythm Low voltage QRS Nonspecific T wave abnormality Abnormal ECG Confirmed by MAREK REECE, COLE ([id number]), film editor supervisor DILLON DALE ([id number]) on 02/15/2022 9:45:08 A M Referred By: Micheal Armstrong Confirmed By:KENY JARA MD
[2022-02-12 10:32] LABS: Absolute Lymphocyte Count 1.56 X10^3/uL (0.83-4.51); Absolute Neutrophil Count 6.3 X10^3/uL (2.0-7.7); Basophil# 0.05 X10^3/uL; Basophil% 0.6 % (0-1); Eosinophil# 0.13 X10^3/uL; Eosinophils% 1.5 % (0-5); Hematocrit 39.2 % (37-47); Hemoglobin 12.4 g/dL (12.0-15.0); Lymphocyte # 1.56 X10^3/ul (0.83-4.51); Lymphocyte % 17.8 % (19-41); Mean Corp Hgb Conc 31.6 g/dL (32-36); Mean Corpuscular Hgb 28.1 pg (27.0-32.0); Mean Corpuscular Volume 88.9 fL (81-99); Mean Platelet Vol. 11.1 fl (6.2-12.0); Monocyte# 0.63 X10^3/uL; Monocyte% 7.2 % (0-10); NRBC Flagged by Analyzer 0 % (0-5); Neutrophil # 6.34 X10^3/uL (2.7-7.7); Neutrophil % 72.4 % (47-70); Platelet Count 246 K/mm3 (150-450); RBC Distribution Width CV 14.6 % (11.6-14.6); RBC Distribution Width SD 47.4 fl (35.1-43.9); Red Blood Count 4.41 M/mm3 (4.2-5.4); White Blood Count 8.8 K/mm3 (4.4-11.0)
[2022-02-12 10:53] LABS: Hemoglobin A1c 5.6 % (3.8-5.6)
[2022-02-12 11:25] LABS: Albumin, Serum 3.4 g/dL (3.2-5.0); Anion Gap 5 (5-15); BUN 17 mg/dL (7-18); BUN/Creat Ratio 22.8 RATIO (10-20); Chloride 108 mmol/L (98-107); Creatinine, Serum 0.75 mg/dL (0.55-1.02); EST Glomerular Filtration Rate 84 mL/min (>60); Est Glom Filt Rate - Afr Amer 101 mL/min (>60); Glucose 98 mg/dL (74-106); Potassium 4.1 mmol/L (3.5-5.1); Sodium Level 142 mmol/L (136-145)
[2022-02-15] VITALS (11 sets, daily range): BP systolic 91–118; BP diastolic 49–63; PULSE 66–83; RESP 16–18; TEMP 36.4–37.2; O2SAT 94–100; BMI 32.5
[2022-02-15] MEDS: Magnesium 1 GM over 15 mins IV (09:26)
[2022-02-15] MEDS: Gabapentin 600 MG Tablet PO (09:27)
[2022-02-15] MEDS: Acetaminophen 500 MG Tablet 1000 MG PO ×3 (09:27→21:03)
[2022-02-15] MEDS: Lactated Ringers 1,000 ML 15 ML IV (09:30)
--- NOTE | 2022-02-15 09:41 | RAD_ITS ---
STUDY: X-RAY - RIGHT KNEE REASON FOR EXAM: Female, 61 years old. Postop. TECHNIQUE: 2 view(s) of the knee. COMPARISON: None. FINDINGS: There is a total knee replacement. The prosthetic components are intact and articulate normally with each other. There is no evidence of loosening from the underlying bone. There is no evidence of osseous fracture or destructive osseous pathology. There is air and swelling in the anterior soft tissues with midline skin clips. RAD/Knee 1 or 2 Views IMPRESSION: Status post right TKA. Electronically Signed: Perfecto Orosco DO at 16:47 EDT ,
[2022-02-15 09:45] LABS: Bedside Glucose 94 mg/dL (74-106)
[2022-02-15] MEDS: Cefazolin 2 GM in 0.9% Normal Saline 100 ML IV (09:50)
[2022-02-15] MEDS: TXA 1000mg in NS100 100ml (IVPB at Incision) 660 MG IV (09:59)
[2022-02-15] MEDS: Lactated Ringers 1,000 ML 999 ML IV (10:40)
--- NOTE | 2022-02-15 10:40 | KNEE_PTH ---
PATIENT: DANIEL HOFF LOC: [facility] U#:[id number] AGE/SX: 61/F ROOM: DE308 RE02/15/[address]: Dr. Micheal Armstrong DO : 1960 BED: 1 DIS: 02/17/2022 SPEC #: [id number] RECD: 02/15/22 13:05 STATUS: JANICE BART #: [id number] DARREN: 02/15/22 10:[address]: Micheal Armstrong DEPT: SURGICAL PATHOLOGY RECD BY: Rossy Aguirre ENTERED: 02/16/22 08:25 SP TYPE: TOTAL KNEE OTHR DR: MD Dr. Zane Morton MD Thomas Janas, PA-C Tissues: Knee, NOS Procedures: Decalcification bone/plaque Surgery Specimen Level IV HEADER OPERATION: ERAS, total knee replacement robotic arm assist PRE-OP DIAGNOSIS: Osteoarthritis right knee TISSUE SUBMITTED: Bone and tissue right knee MICROSCOPIC DIAGNOSIS Bone and tissue of right knee, total knee resection: Severe degenerative joint disease. AM:jonathan 02/19/2022 MICROSCOPIC DESCRIPTION Slides are reviewed. GROSS DESCRIPTION Received is one container designated bone and soft tissue right knee. The specimen consists of multiple fragments of stubbs-yellow bone measuring in aggregate 10 x 8 x 3 cm. No soft tissue is identified. A number of bony fragments contain articular surfaces consistent with tibial plateau and femoral condyle and displaying prominent osteophyte formation and bone erosion. Flattening Press Operator sections are submitted in two cassettes after decalcification. / RACHAEL:jonathan 02/16/2022 TC:5 CPT: 78909, 76349
[2022-02-15] MEDS: TXA 1000mg in NS100 100ml (IVPB at Closure) 660 MG IV (10:55)
--- NOTE | 2022-02-15 11:03 | OP.PCM_ITS ---
Report of Operation Date of Procedure: 02/15/22 Pre-Operative Diagnosis: OA right knee Post-Operative Diagnosis: same Surgery/Procedure Performed:: Right TKR Description of Surgical Findings:: Report of Operation Date of Procedure: 02/15/2022 Preoperative Diagnosis: [Right ] knee primary osteoarthritis Postoperative Diagnosis: [Right ] knee primary osteoarthritis Operation: Robotic Assisted Knee Total Arthroplasty, [Right ] knee Surgeon: Dr Micheal Armstrong DO State Epidemiologist: Celio Kraft PA-C Anesthesia: Spinal Anesthesiologist: Mack Snow M.D. Findings: Stable knee with good patella tracking Specimen(s): Bony cuts Complications: No intraoperative complications Estimated Blood Loss: 30 cc IV Fluids: 1000 cc crystalloid Implants Used: 1. Alisa Triathlon press-fit CR size 2 femur 2. [place] Triathlon size 2 tibia 3. 29 mm patella 4. 9 mm CS polyethylene Brief History Operative Indications: [ (61 y/o female) ] with history of [right ] knee osteoarthrosis with radiographic findings with loss of joint space, osteophyte formation and subchondral sclerosis. Failed conservative measures as mentioned in the H&P. Discussion of total knee arthroplasty as well as risk and benefits were discussed with the patient including but not limited to blood loss, DVTs, PEs, neurovascular damage, general risk of anesthesia including loss of life, and stiffness or instability were also discussed with the patient. Patient demonstrated understanding and was able to sign informed consent. Procedure: On the date of procedure, patient's [right ] lower extremity was marked in the preoperative area. The patient was then taken back to the operating room where that patient was placed on the table in the supine position. All bony prominences were identified and well-padded. Anesthesia assumed control of the C-spine and airway throughout the remainder of the procedure. A tourniquet was placed on the [right ] upper thigh and the leg was prepped in a sterile fashion. The surgeon then scrubbed at this time. Upon reentering the room, the [ right ] lower extremity was draped in a standard orthopedic fashion. A timeout was then called and everyone agreed upon the side, the site, the procedure to be performed, patient's identity and antibiotics given. Esmarch bandage was used to exsanguinate the extremity and the tourniquet was placed up to 250 mmHg with the knee in flexion. A midline skin incision was made and a sharp dissection was taken down through skin, subcutaneous tissue and fat. The standard medial parapatellar incision was made and the patella was subluxed laterally. An appropriate deep MCL release was done and the fat pad was resected. Our attention was then directed to the patella. The patella was everted and a flat resection was made. The knee was then flexed up and 2 femoral pins were placed inside the incision and 2 tibial pins were placed outside the incision in the medial tibia bicortically. Once this was completed, the 2 checkpoints in the femur and tibia were placed. Knee was then flexed up and the bony landmarks were registered. Once the was completed, the knee taken through range of motion and manually stressed allowing us to plan for an appropriate tibial cut. The robotic arm was brought into the field sterilely and checkpoint and saw were registered. Based on the patient's deformity, the tibial cut was made in [2 degrees varus ]. At this time, the tensioner was then placed in the joint and ligament tension was checked at 90 degrees and full extension. Based on the patient's ligamentous tension, appropriate adjustments were made to the operative plan and ligament releases were done. Once we were happy with our operative plan with balanced flexion and extension gaps, our attention was directed to the femur. The robot was brought into the field sterilely and registered. Posterior condylar cuts, anterior chamfer cuts and anterior cuts were appropriately made for a [size 2 ] femur. When these were completed, the saws were switched out in the distal femoral and posterior chamfer cuts were made. Protecting the soft tissue throughout this time. A [size 2 ] base plate was selected. The knee was flexed to 90 degrees and soft tissues and posterior osteophytes were removed from the joint. 40 cc of the periarticular injection was injected into the posterior medial corner of the joint. The appropriate trials were then placed on the femur and tibia. A trial polyethylene was trialed to ensure proper balancing and stability of the knee. The appropriate tibial internal rotation was then marked with a bovie. Our attention was then directed to the patella. The lug holes were drilled and the patella trial was placed. Patellar tracking was checked and deemed appropri ate. Once we were happy, lug holes were drilled for the femur and trial components were removed. The tibia was subluxed and pinned into place and the keel was punched and drilled appropriately. Final components were verified and opened. The wound was copiously irrigated with normal saline. The components were impacted into place with the tibia, femur and finally the patella. The trial poly component was placed and the knee was placed in full extension. The tracking, alignment and balance were verified and a [9 mm CS ] polyethylene component was placed. Once the final components were placed an Irrisept lavage was performed and the wound was copiously irrigated with normal saline solution and the periarticular injection was given. the wound was closed in a layer-lorenz fashion using #1 vi cryl interrupted sutures for the arthrotomy, 2-0 interrupted vicryl suture for the subcuticular layer and girish for final skin closure. A sterile compressive dressing was then placed. The patient was then awakened from anesthesia, transferred to the [facility] and transferred to the PACU for recovery. My physician account management assistant was a vital part of this case. He was important in appropriate retraction during the case, and protection of soft tissues during bony cuts. His intimate knowledge of the case and my steps aided in safe and expedient completion of the procedure as well as appropriate position of the leg during the case. He was also vital in assisting with closure under my direct supervision. Due to the complexity of this case, robotic arm was used to assist in the surgery to improve accuracy and clinical outcomes. Post-op Plan: DVT ppx; ASA 81 mg BID, thigh high compression stockings Follow up: in office in 2 weeks for wound check PT: to start POD #0 at hospital, outpatient PT should be arranged. Preoperative antibiotic: Ancef 2 grams IV Micheal Armstrong DO Surgeon: Micheal Armstrong order fulfillment specialist: Celio Kraft Type of Anesthesia: Spinal Anesthesiologist: Mack Snow Estimated Blood Loss (mL): 30 cc Fluids Replaced: 1000 cc crystalloid Admit VTE Documentation VTE Present on Admission: No VTE Mechan Device Prophylaxis: SCD's and Thigh High YARITZA Hose VTE Pharm Prophylaxis ordered?: Yes
[2022-02-15] MEDS: Lactated Ringers 1,000 ML 125 ML IV (13:14)
[2022-02-15] MEDS: oxyCODONE 5 MG Tablet PO ×2 (13:32→18:05)
--- NOTE | 2022-02-15 15:11 | CPS ---
started by nursing
[2022-02-15] MEDS: Ondansetron 4 MG/2 ML Vial IV (16:37)
[2022-02-15] MEDS: 0.9% Saline Lock 10 ML Syringe IV (16:37)
[2022-02-15] MEDS: Cefazolin 1 GM/50 ML BAG IV (17:30)
[2022-02-15] MEDS: Senna/Docusate Sodium 1 Tablet 2 TABLET PO (21:03)
[2022-02-16] VITALS (10 sets, daily range): BP systolic 102–117; BP diastolic 53–70; PULSE 71–100; RESP 16–18; TEMP 36.4–37.5; O2SAT 94–98
[2022-02-16] MEDS: Cefazolin 1 GM/50 ML BAG IV (02:06)
[2022-02-16] MEDS: oxyCODONE 5 MG Tablet PO ×3 (02:30→20:05)
[2022-02-16] MEDS: Acetaminophen 500 MG Tablet 1000 MG PO ×3 (05:30→21:13)
[2022-02-16 07:00] LABS: Hematocrit 32.4 % (37-47); Hemoglobin 10.6 g/dL (12.0-15.0); Mean Corp Hgb Conc 32.7 g/dL (32-36); Mean Corpuscular Hgb 28.8 pg (27.0-32.0); Mean Platelet Vol. 10.9 fl (6.2-12.0); Platelet Count 208 K/mm3 (150-450); RBC Distribution Width CV 14.8 % (11.6-14.6); RBC Distribution Width SD 47.9 fl (35.1-43.9); Red Blood Count 3.68 M/mm3 (4.2-5.4)
[2022-02-16 07:28] LABS: Anion Gap 7 (5-15); BUN 16 mg/dL (7-18); BUN/Creat Ratio 18.1 RATIO (10-20); Calcium,Total 8.3 mg/dL (8.5-10.1); Chloride 104 mmol/L (98-107); Creatinine, Serum 0.88 mg/dL (0.55-1.02); EST Glomerular Filtration Rate 69 mL/min (>60); Est Glom Filt Rate - Afr Amer 83 mL/min (>60); Estimated Creatinine Clearance 59.64 ml/min; Glucose 138 mg/dL (74-106); Potassium 3.5 mmol/L (3.5-5.1); Sodium Level 139 mmol/L (136-145)
--- NOTE | 2022-02-16 07:43 | PN.ORTHO_ITS ---
Subjective Subjective Patient sitting at bedside states pain is been very well managed. Patient denies chest pain, shortness of breath, calf pain, nausea vomiting. Patient states she is ready to return home today. She will be doing in-home therapy for 1 week with a nurse, and then will be doing outpatient therapy at [facility] [place] Objective Data Objective Data Vital Signs: Vital Signs Temp Pulse Resp BP Pulse Ox O2 Del Method O2 Flow Rate 98 F 71 16 106/63 95 Room Air 4 02/16/22 05:01 02/16/22 05:01 02/16/22 05:01 02/16/22 05:01 02/16/22 05:01 02/16/22 05:01 02/16/22 05:01 Oxygen Flow Rate (L/min) 4 Oxygen Delivery Method Room Air Weight: 90.2 kg Body Mass Index (BMI) 32.5 Intake & Output: Intake and Output for Last 24 Hours 02/14/22 02/15/22 02/16/22 23:59 23:59 23:59 Intake Total 3806.17 / 3806.17 235.25 / 235.25 Output Total 1400 / 1700 600 / 600 Balance 2406.17 / 2106.17 -364.75 / -364.75 Lab / Micro Data Result Diagrams: 02/16/22 06:03 02/16/22 06:03 Labs: Laboratory Results - last 24 hr 02/15/22 08:56: POC Glucose 94 02/16/22 06:03: WBC 13.0 H, RBC 3.68 L, Hgb 10.6 L, Hct 32.4 L, MCV 88.0, MCH 28.8, MCHC 32.7, RDW Std Deviation 47.9 H, RDW Coeff of Kartik 14.8 H, Plt Count 208, MPV 10.9 02/16/22 06:03: Sodium 139, Potassium 3.5, Chloride 104, Carbon Dioxide 28.0, Anion Gap 7, BUN 16, Creatinine 0.88, Estim Creat Clear Calc 59.64, Est GFR (MDRD) Af Amer 83, Est GFR (MDRD) Non-Af 69, BUN/Creatinine Ratio 18.1, Glucose 138 H, Calcium 8.3 L Micro: Microbiology 02/12/22 09:26 Swab (Method) Nasal Screen MRSA/MSSA - Final Radiography Diagnostic Testing: Radiology Impression Knee X-Ray 02/15/22 09:41 IMPRESSION: Status post right TKA. Electronically Signed: Perfecto Orosco DO at 16:47 EDT Reading Location ID and State: [facility] / [place] Tel [phone], Service support , Physical Exam Narrative Upon exam I found patient sitting comfortably in a chair next to the bed. Patient was alert and oriented. Patient was in no respiratory distress, speaking in full sentences. Patient was moving upper extremities without limitations with good muscle tone and strength. Patient's knee was cool to touch nonerythematous the dressing was clean dry and intact. There is no calf tenderness. She has good plantar flexion dorsiflexion of bilateral feet without pain. Strong distal pulses. Neurovascular is otherwise intact. Const alert and oriented x3 General Appearance: cooperative HEENT normocephalic Eyes PERRL Resp normal respiratory effort Effort and Inspection: able to speak in complete sentences Cardio regular rate Extremity normal capillary refill Skin no rashes or lesions noted Neuro CN's II-XII intact bilaterally Psych mental status grossly normal and affect normal Assessment & Plan Assessment/Plan (1) Status post total right knee replacement not using cement: PLAN: 1. Continue all pain medications as prescribed 2. Aspirin 81 mg 1 p.o. every 12 hours x30 days for postop DVT prophylaxis 3. Weight-bear as tolerated with walker 4. Continue ice to right knee 5. Continue YARITZA hose during the day off at night 6. Continue physical therapy after p.m. therapy can be discharged home today 7. Follow-up in 2 weeks as scheduled
--- NOTE | 2022-02-16 07:49 | DCINST_ITS ---
Discharge Instructions Diet Discharge Diet: No restrictions Activity Discharge Activity: May Not Drive, May Shower and Use Walker May shower in (days): 3 May resume sexual activity in: No Restrictions Ice area for (Minutes): 30 Weight Bearing Status: Weight bearing as tolerated Keep extremity elevated above heart level: Operative Extremity Dressing / Incision Call your doctor if your incision/area has: Continuous Slow Oozing, Sudden Increased Bleeding, Increased Pain/ Swelling and Increased Redness Call your doctor if you observe: Fever of 101 or Higher Change Dressing in: leave in place till F/U Remove Dressing in: leave in place till F/U Additional Dressing/Incision Instructions:: Dressing will remain in place until your first physical therapy appointment. Can shower with dressing Follow Up Care Please Follow Up With: Celio Kraft, PA-C When: As scheduled Test Results: Test results from this visit will be discussed in further detail at your follow- up appointment, if applicable. Discharge Plan Admission Admit Date/Time: 02/15/22 13:25 Primary Reason for Your Visit: Right total knee arthroplasty Attending Provider: Micheal Armstrong Primary Care Provider: Zane Echevarria Consulting Providers: Celio Kraft ; Uriel Hinojosa Discharge Orders/Prescriptions Prescriptions: New acetaminophen 500 mg Tablet 1,000 mg PO Q8 30 Days Qty: 180 0RF aspirin 81 mg Tablet,Chewable 81 mg PO DAILY@0800 30 Days Qty: 60 0RF oxycodone 5 mg Tablet 5 - 10 mg PO Q4H PRN PRN (Reason: Pain Score 4-10) 7 Days Qty: 84 0RF sennosides-docusate sodium [Stool Softener-Stimulant Laxat] 8.6-50 mg Tablet 2 tab PO BID 7 Days Qty: 28 0RF Continued mecobalamin (vitamin B12) 1,000 mcg tablet,chewable 1,000 mcg PO DAILY ursodiol 500 mg tablet 500 mg PO BID Qty: 180 3RF atorvastatin 20 MG tablet 20 mg PO DAILY calcium carbonate 600 MG tablet 630 mg PO TID benztropine 2 MG tablet 1 mg PO DAILY PRN PRN (Reason: Anxiety) omeprazole 20 MG capsule,delayed release(DR/EC) 20 mg PO DAILY aripiprazole [Abilify] 15 MG tablet 15 mg PO DAILY ergocalciferol (vitamin D2) 1,250 mcg (50,000 unit) capsule 50,000 unit PO Q21D cholecalciferol (vitamin D3) [Vitamin D3] 25 mcg (1,000 unit) Capsule 25 mcg PO QWEEK Other Ambulatory Orders: 12 Lead EKG (Routine) Timeframe: [id number] Location: None Selected Ordered By: Dr. Micheal Armstrong Referrals / Follow Up: Zane Echevarria MD [Primary Care Provider] - Disposition Disposition (needs filled in before D/C Order can be placed): Home, Self Care
[2022-02-16] MEDS: Senna/Docusate Sodium 1 Tablet 2 TABLET PO ×2 (08:16→21:13)
[2022-02-16] MEDS: Aspirin 81 MG TAB.CHEW PO (08:16)
--- NOTE | 2022-02-16 10:03 | CASEMGMT ---
Social Work SW in to verify AD. Pt named , [employer] [facility], as agent. Pt made aware HCPOA not on file. Pt declined providing a copy of document at this time. Pt did not want to discuss HCPOA/LW documents with SW. MAHSA Aguilera
--- NOTE | 2022-02-16 10:56 | PHA.DC.MR ---
Pharmacy Service has performed discharge medication reconciliation for this patient. The patient's discharge medication list was reviewed for discrepancies and discrepancies were resolved. Unable to residential youth counselor, medications reviewed. Home Medications aripiprazole 15 mg tablet (Abilify) 15 mg PO DAILY 09/02/19 atorvastatin 20 mg tablet 20 mg PO DAILY 09/02/19 benztropine 2 mg tablet 1 mg PO DAILY PRN PRN Anxiety 09/02/19 calcium carbonate 600 mg calcium (1,500 mg) tablet 630 mg PO TID 09/02/19 omeprazole 20 mg capsule,delayed release 20 mg PO DAILY 09/02/19 ergocalciferol (vitamin D2) 1,250 mcg (50,000 unit) capsule 50,000 unit PO Q21D 02/06/20 mecobalamin (vitamin B12) 1,000 mcg chewable tablet 1,000 mcg PO DAILY 02/03/21 cholecalciferol (vitamin D3) 25 mcg (1,000 unit) capsule (Vitamin D3) 25 mcg PO QWEEK 10/02/21 ursodiol 500 mg tablet 500 mg PO BID #180 tabs 02/10/22 acetaminophen 500 mg tablet 1,000 mg PO Q8 Pain 30 days #180 tabs 02/16/22 aspirin 81 mg chewable tablet 81 mg PO DAILY@0800 Postop DVT prophylaxis 30 days #60 tabs 02/16/22 oxycodone 5 mg tablet 5 - 10 mg PO Q4H PRN PRN Pain Score 4-10 7 days #84 tabs 02/16/22 sennosides 8.6 mg-docusate sodium 50 mg tablet (Stool Softener-Stimulant Laxative) 2 tab PO BID As needed constipation 7 days #28 tabs 02/16/22
--- NOTE | 2022-02-16 11:04 | CASEMGMT ---
JESSE ABBOTT Assessment: Face to Face with pt for initial transition planning/care coordination assessment. JESSE ABBOTT introduced self and role at [facility], pt voices understanding and consents to assessment. Pt is A/O x4 and answers all questions appropriately at this time. Pt in bed. Very drowsy but able to answer questions and communicate. Care providers, pharmacy, and demographics verified/updated. Admitting Dx: Rt Total Knee with Bharat. PCP: [facility] Specialists: Friend, GI; Michael, endocrinology; Knappedro luis, ortho. [facility]erred [facility]acy[facility]. Insurance: Medicare, [employer]. Prescription Benefit: yes. LNOK: [place]o [place], . Living Arrangements: Pt lives with in a one story home. Pt has two steps to get into the home. Pt reports I in ADLs but typically sponge bathes due to poor balance. Transportation: Pt does drive but is driving pt to medical appointments. DME/HHC/SNF: Pt has a rollator and bedside commode. PT recommends FWW. Patient was provided a list of HHC/DME providers including quality and resource use data and consistent with the patient?s preferred geographic region, medical needs, and insurance network were provided from the [employer]. Pt is agreeable and chooses [facility]. Pt has CPAP and denies oxygen. Pt denies HH in the past. Pt reports 1 or 2 SNF stays in the past but could not recall where. PT encouraged. PT declined stating she has an IP home nurse for the first week after surgery. Pt denies need for HH, Skilled therapy set up. Outpt with [facility]. Pt states no concerns with going home at time of dc. Pt states no further concerns/needs. CM to follow. Advised pt to ask CM if any further question/concerns/needs arise, voices understanding. Pt Goal: Home with privately paid IP home nurse. Outpt therapy with [facility] one week after surgery. Plan: Home with privately paid IP home nurse. Outpt therapy with [facility] one week after surgery.
--- NOTE | 2022-02-16 11:32 | CASEMGMT ---
TC to [facility], faxed rx for FWW for signature at 0850. TC back to [facility] and left message for clinical medical assistant requesting FWW rx faxed back as well as to make aware that pt has a private hire nurse that she intends to have assist her with therapy the first week prior to coming to outpt therapy at [facility]. This is not a skilled agency providing the care. Left message with call back info.
[2022-02-16] MEDS: Benztropine 2 MG Tablet 1 MG PO (15:36)
[2022-02-16] MEDS: ARIPiprazole 10 MG Tablet 15 MG PO (15:36)
[2022-02-16] MEDS: Atorvastatin Calcium 20 MG Tablet PO (21:13)
[2022-02-17] MEDS: oxyCODONE 5 MG Tablet PO ×3 (00:59→13:07)
[2022-02-17 02:00] VITALS: BP 114/69; PULSE 97; RESP 16; TEMP 36.5; O2SAT 98
[2022-02-17] MEDS: Acetaminophen 500 MG Tablet 1000 MG PO (05:15)
[2022-02-17 08:01] VITALS: BP 107/58; PULSE 91; RESP 16; TEMP 36.6; O2SAT 96
[2022-02-17] MEDS: Benztropine 2 MG Tablet 1 MG PO (08:26)
[2022-02-17] MEDS: Aspirin 81 MG TAB.CHEW PO (08:26)
[2022-02-17] MEDS: Senna/Docusate Sodium 1 Tablet 2 TABLET PO (08:26)
[2022-02-17 09:13] VITALS: O2SAT 99
[2022-02-17] MEDS: ARIPiprazole 10 MG Tablet 15 MG PO (09:51)
[2022-02-17 10:17] VITALS: O2SAT 98
--- NOTE | 2022-02-17 10:46 | CASEMGMT ---
TC to [facility] for [facility]er rx to be signed, spoke with credit front office developer who will send a message to physician.
--- NOTE | 2022-02-17 13:03 | CASEMGMT ---
Referral for FWW sent to [facility] via [facility]. Liaison notified via email.
[2022-02-17 13:35] VITALS: BP 106/58; PULSE 90; RESP 16; TEMP 36.6; O2SAT 94
== END 2022-02-17 14:05 | disposition home or self-care (01) ==
LOC: SDC 13:33 → MS3 13:33
PROVIDERS: Anesthesiology; Admitting Provider Orthopaedic Surgery; PCP Internal Medicine; Referring Provider Orthopaedic Surgery; Visit Provider Orthopaedic Surgery
PROC: 0SRC0JZ Replacement of Right Knee Joint with Synthetic Substitute, Open Approach (ICD-10-PCS; CPT 27447; principal; 2022-02-15 10:10)
DX: M17.11 Unilateral primary osteoarthritis, right knee (principal); F31.9 Bipolar disorder, unspecified; K21.9 Gastro-esophageal reflux disease without esophagitis; Z79.899 Other long term (current) drug therapy; E78.00 Pure hypercholesterolemia, unspecified; E66.8 Other obesity; Z68.37 Body mass index [BMI] 37.0-37.9, adult; Z86.16 Personal history of COVID-19; R60.0 Localized edema; E06.3 Autoimmune thyroiditis; I89.0 Lymphedema, not elsewhere classified; F41.9 Anxiety disorder, unspecified; R16.0 Hepatomegaly, not elsewhere classified; R06.02 Shortness of breath
CPT/HCPCS: 27447; S2900; 01402; 64445; 36415; 73560; 80048; 80053; 82040; 82962; 82977; 83036; 83615; 83735; 85025; 85027; 85610; 85652; 86140; 87081; 88305; 88311; 93005; 96361; 96365; 96366; 96375; 97110; 97116; 97162; 97166; 97530; 97535; 99218; 99251; C1776; J7120; A4216; G0378; G0463; J2405; J3475

== ENCOUNTER 2022-02-20 22:13 | Emergency (ER) | payer MEDICARE, BC, MEDICAID, SELFPAY ==
[2022-02-20 22:14] VITALS: BP 152/76; PULSE 114; RESP 17; TEMP 37.1; O2SAT 95; BMI 39.0
[2022-02-20 22:23] VITALS: BP 130/58; PULSE 105; RESP 17; TEMP 37.1; O2SAT 95
--- NOTE | 2022-02-20 22:41 | EDS_ITS ---
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 She states she was in the hospital till Tuesday and went home. She states she been doing well but today noticed some redness to the lower portion of the right leg. She states she is concerned she may be developing infection and secondary to this comes in for evaluation. Patient denies any fevers chills chest pain or shortness of breath [facility] Medical History Anxiety Arthritis Arthritis Bipolar 1 disorder Bipolar disorder CPAP (continuous positive airway pressure) dependence Elevated alkaline phosphatase level Enlarged liver Fractures Gastric reflux GERD (gastroesophageal reflux disease) H/O emotional problems High cholesterol History of back problems History of echocardiogram History of edema History of irregular heartbeat History of pain when walking History of stress test Hyperlipidemia Leg cramps Non-smoker Osteopenia Post-menopausal Shortness of breath on exertion Sleep apnea UTI (urinary tract infection) Vision abnormalities Wears glasses Home Medications aripiprazole 15 mg tablet (Abilify) 15 mg PO DAILY 09/02/19 [History Last Taken Unknown] atorvastatin 20 mg tablet 20 mg PO DAILY 09/02/19 [History Last Taken Unknown] benztropine 2 mg tablet 1 mg PO DAILY PRN PRN Anxiety 09/02/19 [History Last Taken Unknown] calcium carbonate 600 mg calcium (1,500 mg) tablet 630 mg PO TID 09/02/19 [History Last Taken Unknown] omeprazole 20 mg capsule,delayed release 20 mg PO DAILY 09/02/19 [History Last Taken Unknown] ergocalciferol (vitamin D2) 1,250 mcg (50,000 unit) capsule 50,000 unit PO Q21D 02/06/20 [History Last Taken Unknown] mecobalamin (vitamin B12) 1,000 mcg chewable tablet 1,000 mcg PO DAILY 02/03/21 [History Last Taken Unknown] cholecalciferol (vitamin D3) 25 mcg (1,000 unit) capsule (Vitamin D3) 25 mcg PO QWEEK 10/02/21 [History Last Taken Unknown] ursodiol 500 mg tablet 500 mg PO BID #180 tabs 02/10/22 [Rx Last Taken Unknown] acetaminophen 500 mg tablet 1,000 mg PO Q8 Pain 30 days #180 tabs 02/16/22 [Rx Last Taken Unknown] aspirin 81 mg chewable tablet 81 mg PO DAILY@0800 Postop DVT prophylaxis 30 days #60 tabs 02/16/22 [Rx Last Taken Unknown] oxycodone 5 mg tablet 5 - 10 mg PO Q4H PRN PRN Pain Score 4-10 7 days #84 tabs 02/16/22 [Rx Last Taken Unknown] sennosides 8.6 mg-docusate sodium 50 mg tablet (Stool Softener-Stimulant Laxative) 2 tab PO BID As needed constipation 7 days #28 tabs 02/16/22 [Rx Last Taken Unknown] clindamycin HCl 300 mg capsule 300 mg PO 4X/DAY 10 days #40 caps 02/20/22 [Rx Last Taken Unknown] Allergy/AdvReac Type Severity Reaction Status Date / Time lithium Allergy Rash Verified 02/20/22 22:18 Sulfa (Sulfonamide Allergy Angioedema Verified 02/20/22 22:18 Antibiotics) ibuprofen AdvReac CP Verified 02/20/22 22:18 [From NeoProfen (ibuprofen lysn)(PF)] nitrofurantoin AdvReac Nausea/Vom/ Verified 02/20/22 22:18 [From Macrodantin] Diarrhea Family History Other Anemia Arthritis Bleeding disorder Cancer Hyperlipidemia Hypertension Thyroid disorder Surgical History H/O foot surgery H/O knee surgery History of tonsillectomy Hx of tubal ligation Social History Smoking Status: Never smoker alcohol intake: current substance use type: does not use ROS ROS ED Constitutional Constitutional ED: Denies chills or fever(s) ENT ENT ED: Denies sore throat Cardiovascular Cardiovascular: Denies chest pain Respiratory/Chest Respiratory/Chest: Denies cough or dyspnea Gastrointestinal Gastrointestinal: Denies abdominal pain, diarrhea, nausea or vomiting Genitourinary Genitourinary ED: Denies dysuria Musculoskeletal Musculoskeletal: Denies myalgias Integumentary Reports other Details: Positive right leg redness ; Denies rash Neurologic Neurologic: Denies headache(s) Hematologic/Lymphatic Hematologic/Lymphatic: Denies easy bleeding or easy bruising EXAM Physical Exam Const Vital Signs: 02/20/22 22:14 02/20/22 22:23 Temperature 98.8 F 98.8 F Temperature Source Temporal Temporal Pulse Rate 114 H 105 H Respiratory Rate 17 17 Blood Pressure 152/76 H 130/58 H Blood Pressure Mean 101 82 Pulse Ox 95 95 Oxygen Delivery Method Room Air Room Air Positive well nourished, well developed and obese General Appearance ED: well developed Nutritional Appearance: obese Eyes PERRL and EOMs intact bilaterally Neck supple Resp normal respiratory effort and clear to auscultation bilaterally Cardio regular rate and regular rhythm Rate: other Other Details: Radial pulses are plus 2 out of 4 bilaterally are equal and symmetric Extremity Extremity Narrative: Patient has postoperative changes to the right leg consistent with her recent knee replacement. However along the anterior aspect of the lower right smith there is asymmetric erythema and warmth. The erythema is localized to the distal third of the anterior aspect of the right lower leg it is not circumferential it does not track down to the ankle or foot and there is no lymphangitic streaking. No abscess formation noted. Patient has edema to both legs which is chronic in nature. Negative Homans' sign bilaterally. The surgical incision across the anterior aspect of the right knee is clean dry and intact. Patient can flex her knee at appropriate degree status post surgery indicating no septic joint. Neuro oriented x3 and CN's II-XII intact bilaterally Sensorium / Orientation: alert Psych mental status grossly normal Skin Skin Narrative: Soft tissue skin changes to the right leg as documented above MDM MDM MDM Narrative Medical decision making narrative: Patient presented to the ER afebrile. She has no chest pain or shortness of breath and negative Homans' sign so my concern for DVT as a cause of her redness is low. The redness is located below the surgical incision site and there is normal tissue in between the new onset erythema and surgical incision so therefore I do not feel that this is tracking of postoperative hematoma. I do f eel this is most likely development of early cellulitis. However as it is only located to the anterior third of the right lower leg it is not circumferential and there is no streaking and the patient is stable vitals I do not feel there is need for blood work as this would not change the outcome of need for antibiotics. Also she has no physical exam findings to suggest systemic infection or septicemia there is no need for work-up as she would just require oral antibiotics and home at this time. Patient was advised to follow-up with her orthopedic surgeon for repeat evaluation and return to the ER if she has any further concerns. Patient states she is agreeable with this plan Discharge Plan Triage Chief Complaint: Lower Extremity Injury ED Provider: Alex Mendez Dx/Rx/DC Orders Clinical Impression: Cellulitis of right anterior lower leg, Zuleyka's thyroiditis, Lymphedema Instructions: ED Cellulitis Prescriptions: New clindamycin HCl 300 mg capsule 300 mg PO 4X/DAY 10 Days Qty: 40 0RF No Action mecobalamin (vitamin B12) 1,000 mcg tablet,chewable 1,000 mcg PO DAILY ursodiol 500 mg tablet 500 mg PO BID Qty: 180 3RF atorvastatin 20 MG tablet 20 mg PO DAILY calcium carbonate 600 MG tablet 630 mg PO TID benztropine 2 MG tablet 1 mg PO DAILY PRN PRN (Reason: Anxiety) omeprazole 20 MG capsule,delayed release(DR/EC) 20 mg PO DAILY aripiprazole [Abilify] 15 MG tablet 15 mg PO DAILY ergocalciferol (vitamin D2) 1,250 mcg (50,000 unit) capsule 50,000 unit PO Q21D cholecalciferol (vitamin D3) [Vitamin D3] 25 mcg (1,000 unit) Capsule 25 mcg PO QWEEK acetaminophen 500 mg Tablet 1,000 mg PO Q8 30 Days Qty: 180 0RF aspirin 81 mg Tablet,Chewable 81 mg PO DAILY@0800 30 Days Qty: 60 0RF oxycodone 5 mg Tablet 5 - 10 mg PO Q4H PRN PRN (Reason: Pain Score 4-10) 7 Days Qty: 84 0RF sennosides-docusate sodium [Stool Softener-Stimulant Laxat] 8.6-50 mg Tablet 2 tab PO BID 7 Days Qty: 28 0RF Primary Care Provider: Zane Echevarria Referrals: Zane Echevarria MD [Primary Care Provider] - Activity Restrictions/Additional Instructions: If you notice increasing redness you develop a fever over 100.4 or lymphangitic streaking please return to the ER for repeat evaluation Disposition Disposition: Home, Self Care
[2022-02-20] MEDS: Clindamycin HCl 150 MG Capsule 300 MG PO (22:47)
== END 2022-02-20 22:54 | disposition home or self-care (01) ==
PROVIDERS: Emergency Provider Emergency Medicine; PCP Internal Medicine; Visit Provider Emergency Medicine
DX: L03.115 Cellulitis of right lower limb (principal); E06.3 Autoimmune thyroiditis; I89.0 Lymphedema, not elsewhere classified; E78.5 Hyperlipidemia, unspecified; M19.90 Unspecified osteoarthritis, unspecified site
CPT/HCPCS: 99283

== ENCOUNTER → 2022-04-06 | Outpatient (CLI) | payer MEDICARE, BC, MEDICAID, SELFPAY ==
--- NOTE | 2022-04-06 09:45 | RAD_ITS ---
STUDY: X-RAY CHEST REASON FOR EXAM: Female, 61 years old. One-week history of cough and chest pressure. TECHNIQUE: PA and lateral views of the chest. COMPARISON: Comparison is made with prior study dated 09/01/2019. FINDINGS: The lungs are clear and expanded. There is no demonstrated pleural abnormality. There is mild cardiac enlargement. Normal mediastinum and jessa. Normal visualized pulmonary arteries. There is atherosclerotic calcification of the aortic arch with tortuosity. There are degenerative changes of the visualized thoracic spine. Normal visualized ribs, clavicles, and shoulders. There is no demonstrated abnormality of the visualized soft tissue structures of the upper abdomen. RAD/Chest PA and Lateral IMPRESSION: . No acute abnormality is seen. Mild cardiomegaly Electronically Signed: Ricardo Fowler MD at 12:15 EST ,
== END | disposition home or self-care (01) ==
LOC: RAD 09:46
PROVIDERS: PCP Internal Medicine; Referring Provider Internal Medicine; Visit Provider Internal Medicine
DX: R05.9 Cough, unspecified (principal)
CPT/HCPCS: 71046

== ENCOUNTER 2022-04-28 16:51 | Emergency (ER) | payer MEDICARE, BC, MEDICAID, SELFPAY ==
[2022-04-28 16:52] VITALS: BP 158/88; PULSE 120; RESP 20; TEMP 37.1; O2SAT 96; BMI 36.4
[2022-04-28 18:18] VITALS: BP 158/88; PULSE 120; RESP 20; TEMP 37.1; O2SAT 96
[2022-04-28 18:33] LABS: Absolute Lymphocyte Count 1.25 X10^3/uL (0.83-4.51); Basophil# 0.08 X10^3/uL; Basophil% 0.6 % (0-1); Eosinophil# 0.11 X10^3/uL; Eosinophils% 0.8 % (0-5); Hematocrit 37.1 % (37-47); Hemoglobin 12.1 g/dL (12.0-15.0); Lymphocyte # 1.25 X10^3/ul (0.83-4.51); Lymphocyte % 9.4 % (19-41); Mean Corp Hgb Conc 32.6 g/dL (32-36); Mean Corpuscular Hgb 27.1 pg (27.0-32.0); Mean Corpuscular Volume 83.2 fL (81-99); Mean Platelet Vol. 9.7 fl (6.2-12.0); Monocyte# 0.84 X10^3/uL; Monocyte% 6.3 % (0-10); NRBC Flagged by Analyzer 0 % (0-5); Neutrophil # 10.96 X10^3/uL (2.7-7.7); Neutrophil % 82.6 % (47-70); Platelet Count 334 K/mm3 (150-450); RBC Distribution Width CV 14.8 % (11.6-14.6); RBC Distribution Width SD 44.3 fl (35.1-43.9); Red Blood Count 4.46 M/mm3 (4.2-5.4); White Blood Count 13.3 K/mm3 (4.4-11.0)
[2022-04-28 18:43] LABS: Anion Gap 10 (5-15); BUN 15 mg/dL (7-18); BUN/Creat Ratio 16.4 RATIO (10-20); Calcium,Total 9.5 mg/dL (8.5-10.1); Chloride 101 mmol/L (98-107); Creatinine, Serum 0.92 mg/dL (0.55-1.02); EST Glomerular Filtration Rate 66 mL/min (>60); Est Glom Filt Rate - Afr Amer 80 mL/min (>60); Estimated Creatinine Clearance 47.84 ml/min; Glucose 134 mg/dL (74-106); Potassium 3.8 mmol/L (3.5-5.1); Sodium Level 137 mmol/L (136-145)
--- NOTE | 2022-04-28 19:08 | ED.VIS.DYS ---
HPI History of Present Illness Chief Complaint: Shortness of Breath Informant: patient and spouse/S.O. Onset/Context/Timing Onset: Weeks (5) Context: gradual Timing: Continuous Worsened by: Lying flat Relieved by: - (Standing) Associated Symptoms cough and rhinorrhea; Negative for post nasal drip, ear pain, fever, sore throat, subjective, chills, sweats, clear sputum, white sputum, yellow sputum or green sputum Narrative Narrative: Patient presents with cough and shortness of breath that has been constant for the past 5 weeks. Patient states she has been on 2 rounds of prednisone and a course of Zithromax with no improvement. Patient states she was recently prescribed Tessalon Perles and an albuterol inhaler. Patient states these have not been helping either. Patient states she is concerned that she may have walking pneumonia. Patient states she has a cough but denies any sputum production. Patient also admits to some rhinorrhea. Patient denies any fevers or chills. Patient denies any chest pain. [facility] Medical History Anxiety Arthritis Arthritis Bipolar 1 disorder Bipolar disorder CPAP (continuous positive airway pressure) dependence Elevated alkaline phosphatase level Enlarged liver Fractures Gastric reflux GERD (gastroesophageal reflux disease) H/O emotional problems High cholesterol History of back problems History of echocardiogram History of edema History of irregular heartbeat History of pain when walking History of stress test Hyperlipidemia Leg cramps Non-smoker Osteopenia Post-menopausal Shortness of breath on exertion Sleep apnea UTI (urinary tract infection) Vision abnormalities Wears glasses Home Medications aripiprazole 15 mg tablet (Abilify) 15 mg PO DAILY 09/02/19 [History Last Taken Unknown] atorvastatin 20 mg tablet 20 mg PO DAILY 09/02/19 [History Last Taken Unknown] benztropine 2 mg tablet 1 mg PO DAILY PRN PRN Anxiety 09/02/19 [History Last Taken Unknown] calcium carbonate 600 mg calcium (1,500 mg) tablet 630 mg PO TID 09/02/19 [History Last Taken Unknown] omeprazole 20 mg capsule,delayed release 20 mg PO DAILY 09/02/19 [History Last Taken Unknown] ergocalciferol (vitamin D2) 1,250 mcg (50,000 unit) capsule 50,000 unit PO Q21D 02/06/20 [History Last Taken Unknown] mecobalamin (vitamin B12) 1,000 mcg chewable tablet 1,000 mcg PO DAILY 02/03/21 [History Last Taken Unknown] cholecalciferol (vitamin D3) 25 mcg (1,000 unit) capsule (Vitamin D3) 25 mcg PO QWEEK 10/02/21 [History Last Taken Unknown] ursodiol 500 mg tablet 500 mg PO BID #180 tabs 02/10/22 [Rx Last Taken Unknown] acetaminophen 500 mg tablet 1,000 mg PO Q8 Pain 30 days #180 tabs 02/16/22 [Rx Last Taken Unknown] aspirin 81 mg chewable tablet 81 mg PO DAILY@0800 Postop DVT prophylaxis 30 days #60 tabs 02/16/22 [Rx Last Taken Unknown] oxycodone 5 mg tablet 5 - 10 mg PO Q4H PRN PRN Pain Score 4-10 7 days #84 tabs 02/16/22 [Rx Last Taken Unknown] sennosides 8.6 mg-docusate sodium 50 mg tablet (Stool Softener-Stimulant Laxative) 2 tab PO BID As needed constipation 7 days #28 tabs 02/16/22 [Rx Last Taken Unknown] clindamycin HCl 300 mg capsule 300 mg PO 4X/DAY 10 days #40 caps 02/20/22 [Rx Last Taken Unknown] Allergy/AdvReac Type Severity Reaction Status Date / Time lithium Allergy Rash Verified 04/28/22 16:55 Sulfa (Sulfonamide Allergy Angioedema Verified 04/28/22 16:55 Antibiotics) ibuprofen AdvReac CP Verified 04/28/22 16:55 [From NeoProfen (ibuprofen lysn)(PF)] nitrofurantoin AdvReac Nausea/Vom/ Verified 04/28/22 16:55 [From Macrodantin] Diarrhea Family History Other Anemia Arthritis Bleeding disorder Cancer Hyperlipidemia Hypertension Thyroid disorder Surgical History H/O foot surgery H/O knee surgery History of tonsillectomy Hx of tubal ligation Social History Smoking Status: Never smoker alcohol intake: current substance use type: does not use ROS ROS ED Constitutional Constitutional ED: Denies chills or fever(s) Eyes Eyes: Denies blurry vision or change in vision ENT ENT ED: Reports rhinorrhea; Denies sore throat Cardiovascular Cardiovascular: Denies chest pain or palpitations Respiratory/Chest Respiratory/Chest: Reports cough and dyspnea Gastrointestinal Gastrointestinal: Denies nausea or vomiting Genitourinary Genitourinary ED: Denies dysuria or hematuria Musculoskeletal Musculoskeletal: Denies back pain or neck pain Integumentary Denies abscess or rash Neurologic Neurologic: Reports headache(s); Denies weakness Allergic/Immunologic Allergic/Immunologic ED: Denies mouth swelling or urticaria EXAM Physical Exam Const Vital Signs: 04/28/22 16:52 04/28/22 18:18 04/28/22 18:18 Temperature 98.8 F 98.8 F Temperature Source Temporal Temporal Pulse Rate 120 H 120 H Respiratory Rate 20 H 20 H Respiratory Effort Respiratory Depth Respiratory Pattern Blood Pressure 158/88 H 158/88 H Blood Pressure Mean 111 111 Pulse Ox 96 96 Oxygen Delivery Method Room Air Room Air Room Air 04/28/22 18:18 04/28/22 18:18 04/28/22 19:26 Temperature Temperature Source Pulse Rate 88 Respiratory Rate 20 H 20 H Respiratory Effort Short of Breath Respiratory Depth Respiratory Pattern Normal Blood Pressure Blood Pressure Mean Pulse Ox 96 Oxygen Delivery Method Room Air Room Air 04/28/22 19:26 Temperature Temperature Source Pulse Rate Respiratory Rate 20 H Respiratory Effort Normal Non-Labored Short of Breath Respiratory Depth Normal Respiratory Pattern Normal Blood Pressure Blood Pressure Mean Pulse Ox 95 Oxygen Delivery Method Room Air Positive well nourished, well developed and obese General Appearance ED: well developed and NAD Nutritional Appearance: obese HEENT Reports moist mucous membranes Neck supple and no JVD Resp normal respiratory effort Auscultation: diminished lung sounds Cardio regular rate, regular rhythm and no murmurs GI normal to inspection, nondistended, normoactive bowel sounds and non-tender Palpation: soft Extremity normal to inspection General Extremety ED: Negative for edema or tenderness General Extremity: Negative for edema Neuro oriented x3, CN's II-XII intact bilaterally and no sensory deficits noted Sensorium / Orientation: alert Motor Exam: strength 5/5 throughout Psych mental status grossly normal Skin no rashes or lesions noted MDM MDM MDM Narrative Medical decision making narrative: Patient was given a DuoNeb aerosol here. EKG was obtained. On my interpretation shows a sinus tachycardia with occasional PACs with a rate of 120. RI interval, QRS interval, and QTc intervals are normal. [place] is normal. There are no acute ST or T wave changes. This was unchanged compared to last EKG dated 02/12/2022. CBC shows a mild leukocytosis of 13.3. Basic metabolic profile was within normal limits. CTA of the chest was obtained. There is no evidence of pulmonary embolism or aortic dissection. There is no pneumonia. This was interpreted by the radiologist and reviewed by myself. Patient is feeling better on reevaluation. Patient was instructed to use [id number] cough medications as needed. Patient was instructed to follow-up with her primary care physician in 5 to 7 days. Patient and family understood and were agreeable with the plan. All questions were answered. Lab Data Attestation: I reviewed the patient's lab results. Labs: Laboratory Results - last 24 hr 04/28/22 04/28/22 18:15 18:15 WBC 13.3 H RBC 4.46 Hgb 12.1 Hct 37.1 MCV 83.2 MCH 27.1 MCHC 32.6 RDW Std Deviation 44.3 H RDW Coeff of Kartik 14.8 H Plt Count 334 MPV 9.7 Immature Gran % (Auto) 0.300 Neut % (Auto) 82.6 H Lymph % (Auto) 9.4 L [place] % (Auto) 6.3 Eos % (Auto) 0.8 Baso % (Auto) 0.6 Absolute Neuts (auto) 11.0 H Absolute Lymphs (auto) 1.25 Nucleated RBC % 0 Sodium 137 Potassium 3.8 Chloride 101 Carbon Dioxide 26.0 Anion Gap 10 BUN 15 Creatinine 0.92 Estim Creat Clear Calc 47.84 Est GFR (MDRD) Af Amer 80 Est GFR (MDRD) Non-Af 66 BUN/Creatinine Ratio 16.4 Glucose 134 H Calcium 9.5 Radiography Diagnostic Testing: Clinical Impression(s) from Imaging Studies Chest CTA 04/28/22 19:11 IMPRESSION: Mild bilateral dependent pulmonary atelectasis. Normal CTA chest examination, without a demonstrated pulmonary embolism or arterial dissection. Electronically Signed: Mikhail Villela MD at 20:45 EST , EKG Initial EKG: Interpretation: No Acute Injury Pattern and Sinus Tachycardia (120) Prior EKG tracings: available for review Prior: Unchanged Discharge Plan Triage Chief Complaint: Shortness of Breath ED Provider: Dann Oneal Dx/Rx/DC Orders Clinical Impression: Viral upper respiratory tract infection with cough, Cough Instructions: ED URI, Viral, No Abx (Adult) Prescriptions: No Action mecobalamin (vitamin B12) 1,000 mcg tablet,chewable 1,000 mcg PO DAILY ursodiol 500 mg tablet 500 mg PO BID Qty: 180 3RF atorvastatin 20 MG tablet 20 mg PO DAILY calcium carbonate 600 MG tablet 630 mg PO TID benztropine 2 MG tablet 1 mg PO DAILY PRN PRN (Reason: Anxiety) omeprazole 20 MG capsule,delayed release(DR/EC) 20 mg PO DAILY aripiprazole [Abilify] 15 MG tablet 15 mg PO DAILY ergocalciferol (vitamin D2) 1,250 mcg (50,000 unit) capsule 50,000 unit PO Q21D cholecalciferol (vitamin D3) [Vitamin D3] 25 mcg (1,000 unit) Capsule 25 mcg PO QWEEK acetaminophen 500 mg Tablet 1,000 mg PO Q8 30 Days Qty: 180 0RF aspirin 81 mg Tablet,Chewable 81 mg PO DAILY@0800 30 Days Qty: 60 0RF oxycodone 5 mg Tablet 5 - 10 mg PO Q4H PRN PRN (Reason: Pain Score 4-10) 7 Days Qty: 84 0RF sennosides-docusate sodium [Stool Softener-Stimulant Laxat] 8.6-50 mg Tablet 2 tab PO BID 7 Days Qty: 28 0RF clindamycin HCl 300 mg capsule 300 mg PO 4X/DAY 10 Days Qty: 40 0RF Primary Care Provider: Zane Echevarria Referrals: Zane Echevarria MD [Primary Care Provider] - 5-7 Days Disposition Disposition: Home, Self Care
--- NOTE | 2022-04-28 19:11 | CT_ITS ---
STUDY: CTA CHEST REASON FOR EXAM: Female, 61 years old. PE, shortness of breath and cough x1 week RADIATION DOSAGE (If Supplied By Facility): CTDIvol = ( 9.71 ) mGy, DLP = ( 302.19 ) mGycm TECHNIQUE: The examination was performed with the intravenous administration of IV 100mL Isovue-370. Post-processing of the angiographic images was performed, with multiplanar reformation and 3D reconstruction. Individualized dose optimization techniques were used for this CT. COMPARISON: None. FINDINGS: Normal enhancement of the main pulmonary artery and right and left pulmonary arteries. Normal enhancement of the bilateral peripheral pulmonary arteries. There is no demonstrated pulmonary embolism. Normal thoracic aorta and visualized great vessels. There is no demonstrated aortic dissection. There is borderline cardiac cardiomegaly. Normal mediastinum. Normal hilar regions. Normal visualized trachea and bronchi. Mild bilateral dependent lung atelectasis. Normal pulmonary parenchyma. Normal pleura. Normal chest wall structures. Exaggerated thoracic kyphosis. No acute abnormal finding in the visualized upper abdomen. CT/CTA Chest W/WO Contrast IMPRESSION: Mild bilateral dependent pulmonary atelectasis. Normal CTA chest examination, without a demonstrated pulmonary embolism or arterial dissection. Electronically Signed: Mikhail Villela MD at 20:45 EST ,
[2022-04-28 19:26] VITALS: PULSE 88; RESP 20; O2SAT 95
[2022-04-28] MEDS: Ipratropium/Albuterol Sulfate 3 ML AMPUL.NEB INHALATION (19:26)
== END 2022-04-28 22:20 | disposition home or self-care (01) ==
PROVIDERS: Emergency Provider Emergency Medicine; PCP Internal Medicine; Visit Provider Emergency Medicine
DX: J06.9 Acute upper respiratory infection, unspecified (principal); R06.02 Shortness of breath; E78.5 Hyperlipidemia, unspecified; E66.9 Obesity, unspecified; Z79.52 Long term (current) use of systemic steroids; Z20.822 Contact with and (suspected) exposure to COVID-19
CPT/HCPCS: 71275; 80048; 85025; 87811; 93005; 94640; 94760; 99251; 99252; 99283; Q9967; A4216; G0463

== ENCOUNTER → 2022-05-21 | Outpatient (CLI) | payer MEDICARE, BC, MEDICAID, SELFPAY ==
--- NOTE | 2022-05-21 08:06 | RAD_ITS ---
STUDY: X-RAY - ESOPHAGUS (BARIUM SWALLOW) WITH FLUOROSCOPY REASON FOR EXAM: Female, 61 years old. GERD TECHNIQUE: 13 view(s) of the esophagus were obtained following swallowing of barium. FLUOROSCOPY TIME (if supplied): (36 at) minutes/seconds COMPARISON: None. FINDINGS: There is no demonstrated esophageal foreign body. There is narrowing of the distal esophagus at the level of the gastroesophageal junction. The patient ingested a 12 mm tablet of barium. The tablet is trapped at the gastroesophageal junction. Normal gastroesophageal junction, without a demonstrated hiatal hernia. There is atherosclerotic calcification of the aortic arch with tortuosity of the descending aorta. Normal visualized pulmonary parenchyma. Normal visualized osseous structures of the thorax. RAD/Esophagus Single Contrast IMPRESSION: Narrowing at the gastroesophageal junction. The 12 mm tablet of barium is trapped at that site. Correlation with endoscopy is recommended. Electronically Signed: Ricardo Fowler MD at 13:42 EST ,
== END | disposition home or self-care (01) ==
PROVIDERS: PCP Internal Medicine; Visit Provider Internal Medicine Gastroenterology
DX: K21.9 Gastro-esophageal reflux disease without esophagitis (principal); R05.9 Cough, unspecified
CPT/HCPCS: 74220

== ENCOUNTER → 2022-06-28 | Outpatient (CLI) | payer MEDICARE, BC, MEDICAID, SELFPAY ==
--- NOTE | 2022-06-28 11:38 | CPS ---
Patient was first given a sterile saline for inhalation dose per testing protocol. Patient then received 4 increasing doses of Methacholine per protocol until a 20% drop in FEV1. The last dose was placed in the pharmaceutical waste bin. Patient was then given an albuterol aerosol treatment for reversal of airway obstruction.
--- NOTE | 2022-06-29 05:47 | BRONCHALL_ITS ---
Bronchoprovocation Challenge Bronchoprovocation Challenge Bronchoprovocation Challenge: BRONCHOPROVOCATION STUDY INTERPRETATION Brief HPI: Patient is a 61 year old female, currently under the care of Dr. Ovalles, who presents to [facility] for a bronchoprovocation study secondary to diagnosis of cough. Respiratory therapist reports good effort and reproducible results. Interpretation: Initial spirometry showed no large airways obstructive ventilatory defect. The patient was then given increasingly concentrated doses of methacholine in a stepwise/standardized fashion, using a modified ATS protocol. The patient had a significant reduction in FEV1 by 24% and a calculated PD20 of 0.099. Impression: Positive bronchoprovocation study in a range consistent with a diagnosis of asthma
== END | disposition home or self-care (01) ==
LOC: PSN 10:27
PROVIDERS: PCP Internal Medicine; Referring Provider Internal Medicine Critical Care Medicine; Visit Provider Internal Medicine Critical Care Medicine
DX: R05.3 Chronic cough (principal)
CPT/HCPCS: 94070; 95070; J3490; J7674

== ENCOUNTER → 2022-07-09 | Outpatient (CLI) | payer MEDICARE, BC, MEDICAID, SELFPAY ==
--- NOTE | 2022-07-09 12:39 | ECHOD_ITS ---
Reason For Study: SOB Procedure This was a 2D Doppler, Color Flow transthoracic echocardiogram. The study was technically difficult. PT had difficulty lying in left lateral decubitus position and continually coughing. Exam performed in department. Left Ventricle Normal size and thickness. The left ventricular ejection fraction is 70 %. Normal diastology for age. Right Ventricle Normal right ventricle. Atria The left atrium is moderately enlarged. Normal right atrium. Mitral Valve The mitral valve is structurally normal. No prolapse or stenosis seen. Tricuspid Valve Trivial tricuspid valve insufficiency. Pulmonary artery systolic pressure is 38 mmHg. Aortic Valve Normal aortic valve. Pulmonic Valve The pulmonic valve is not well visualized. Great Vessels Normal sized aortic root. Pericardium/Pleural No pericardial effusion. Epicardial fat. MMode/2D Measurements & Calculations LVIDd: 5.7 cm IVSd: 0.91 cm Ao root diam: 2.9 cm LVIDs: 3.9 cm LVPWd: 0.99 cm LA dimension: 4.5 cm RVDd: 2.9 cm FS: 31.7 % LAV(MOD-bp): 58.1 ml LVAd ap4: 25.0 cm2 LVAd ap2: 27.1 cm2 LAV(MOD-bp) Indexed: 32.1 ml/m2 LVLd ap4: 6.8 cm LVLd ap2: 8.0 cm LAV(MOD-sp2): 56.0 ml EDV(MOD-sp4): 75.0 ml EDV(MOD-sp2): 77.4 ml LAV(MOD-sp4): 60.4 ml EDV(sp4-el): 78.2 ml EDV(sp2-el): 78.1 ml LVAs ap4: 12.1 cm2 LVAs ap2: 11.3 cm2 LVLs ap4: 5.6 cm LVLs ap2: 5.1 cm ESV(MOD-sp4): 22.5 ml ESV(MOD-sp2): 21.4 ml ESV(sp4-el): 22.4 ml ESV(sp2-el): 21.4 ml EF(MOD-sp4): 70.0 % EF(MOD-sp2): 72.4 % EF(sp4-el): 71.4 % SV(MOD-sp4): 52.5 ml SV(MOD-sp2): 56.1 ml SV(sp4-el): 55.8 ml LA A4 area: 19.8 cm2 RA A4 area: 15.9 cm2 Time Measurements MV dec time: 0.13 sec Doppler Measurements & Calculations MV E max partha: 81.6 cm/sec Lat Peak E' Partha: 9.5 cm/sec Med Peak E' Partha: 8.0 cm/sec MV A max partha: 88.4 cm/sec E/E' lat: 8.6 E/E' med: 10.1 MV E/A: 0.92 MV dec slope: 633.0 cm/sec2 Ao V2 max: 143.6 cm/sec LV V1 max: 101.1 cm/sec Ao max P.3 mmHg LV V1 max P.1 mmHg Ao V2 mean: 106.7 cm/sec LV V1 mean P.4 mmHg Ao mean P.0 mmHg LV V1 mean: 72.5 cm/sec Ao V2 VTI: 31.3 cm LV V1 VTI: 21.9 cm AV (velocity ratio): 0.70 PA V2 max: 107.7 cm/sec TR max partha: 268.6 cm/sec TR max P.8 mmHg ECHO/Echo Complete Interpretation Summary The left ventricular ejection fraction is 70 %. The left atrium is moderately enlarged. Pulmonary artery systolic pressure is 38 mmHg. Ordering Physician: ROSALVA OLIVAS Referring Physician: Libby Hudson Performed By: Tati Yao RDCS, RVT
--- NOTE | 2022-07-09 12:40 | VDLE_ITS ---
Reason For Study: BLE Swelling RIGHT LEFT CFV is compressible, spontaneous, phasic, CFV is compressible, spontaneous, phasic, competent and demonstrates normal competent, and demonstrates normal augmentation. augmentation. FV is compressible, spontaneous, phasic, FV is compressible, spontaneous, phasic, competent and demonstrates normal competent and demonstrates normal augmentation. augmentation. POP V is compressible, spontaneous, phasic, POP V is compressible, spontaneous, phasic, competent and demonstrates normal competent and demonstrates normal augmentation. augmentation. T/P Trunk is compressible. T/P Trunk is compressible. PTV is compressible. PTV is compressible. RT PerV is compressible. LT PerV is compressible. SFJ is competent and measures 0.94 x 0.85 cm. SFJ is competent and measures 0.77 x 0.76 cm. GSV proximal thigh measures 0.45 x 0.47 cm. GSV proximal thigh measures 0.45 x 0.42 cm. GSV above knee is competent. GSV at knee measures 0.27 x 0.26 cm. GSV at knee measures 0.41 x 0.40 cm. GSV is competent throughout. GSV below knee is INCOMPETENT for greater SSV at junction is competent and measures than 0.5 seconds. 0.40 x 0.44 cm. ASV at knee is INCOMPETENT for greater than 0.5 seconds and measures 0.22 x 0.22 cm. ASV proximal calf is INCOMPETENT for greater than 0.5 seconds and measures 0.21 x 0.22 cm. SSV at junction is INCOMPETENT for greater than 0.5 seconds and measures 0.39 x 0.43 cm. Procedure This is a venous duplex using B-mode, color flow and spectral Doppler. Exam performed in department. Patient was scanned in reverse Trendelenburg position during reflux assessment. VL/Venous Duplex US - Jonas Extrem Interpretation Summary Deep veins of the bilateral lower extremities are patent and compressible segme ntally. There is no evidence of bilateral lower extremity deep vein thrombosis. The bilateral great saphenous veins appear patent and compressible segmentally. Positive for reflux in the right great saphenous vein, right accessory saphenou s vein, right small saphenous vein Ordering Physician: ROSALVA OLIVAS Referring Physician: Libby Hudson M.D. Performed By: Nanda Bedoya RVT
== END | disposition home or self-care (01) ==
LOC: CVS 12:35
PROVIDERS: PCP Internal Medicine
DX: I89.0 Lymphedema, not elsewhere classified (principal); R06.09 Other forms of dyspnea; M79.89 Other specified soft tissue disorders; E65 Localized adiposity
CPT/HCPCS: 93306; 93970

== ENCOUNTER → 2022-08-09 | Outpatient (CLI) | payer MEDICARE, BC, MEDICAID, SELFPAY ==
[2022-08-09 11:24] LABS: International Normalized Ratio 1.1; Prothrombin Time (Protime)PT. 13.5 SECONDS (11.7-14.9)
[2022-08-09 11:48] LABS: AST(SGOT) 23 U/L (15-37); Alanine Aminotransfer ALT/SGPT 24 U/L (13-56); Albumin, Serum 3.9 g/dL (3.2-5.0); Alkaline Phosphatase 152 U/L (45-117); Anion Gap 6 (5-15); BUN 20 mg/dL (7-18); BUN/Creat Ratio 17.1 RATIO (10-20); Calcium,Total 9.2 mg/dL (8.5-10.1); Chloride 103 mmol/L (98-107); Creatinine, Serum 1.17 mg/dL (0.55-1.02); EST Glomerular Filtration Rate 50 mL/min (>60); Est Glom Filt Rate - Afr Amer 60 mL/min (>60); Globulin 3.9 g/dL (2.2-4.2); Glucose 102 mg/dL (74-106); Potassium 3.5 mmol/L (3.5-5.1); Protein, Total 7.8 g/dL (6.4-8.2); Sodium Level 137 mmol/L (136-145)
[2022-08-10 13:07] LABS: Alkaline Phosphatase, Serum 154 IU/L (44-121); Bone Fraction 21 % (14-68); Intestinal Fraction 0 % (0-18); Liver Fraction 79 % (18-85)
[2022-08-10 14:42] LABS: Anti-Smooth Muscle ABS 7 Units (0-19)
[2022-08-11 11:10] LABS: Anti-Mitochondrial AB 30.3 Units (0.0-20.0); Banana <0.10 kU/L (Class 0)
== END | disposition home or self-care (01) ==
PROVIDERS: Nurse Practitioner Adult Health; PCP Internal Medicine; Referring Provider Otolaryngology Otolaryngology/Facial Plastic Surgery; Visit Provider Otolaryngology Otolaryngology/Facial Plastic Surgery
DX: T78.40XA Allergy, unspecified, initial encounter (principal); K74.3 Primary biliary cirrhosis; R16.0 Hepatomegaly, not elsewhere classified; R74.8 Abnormal levels of other serum enzymes; X58.XXXA Exposure to other specified factors, initial encounter
CPT/HCPCS: 36415; 80053; 83516; 84075; 84080; 85610; 86003

== ENCOUNTER → 2022-08-18 | Outpatient (CLI) | payer MEDICARE, MEDICAID, BC, SELFPAY ==
--- NOTE | 2022-08-18 09:53 | US_ITS ---
PROCEDURE: ABDOMINAL ULTRASOUND, RIGHT UPPER QUADRANT COMPARISONS: 06/09/2021. CLINICAL INDICATION: Hepatomegaly, fatty liver TECHNIQUE: Real-time holder-scale abdominal ultrasound. Limited color Doppler evaluation is performed. FINDINGS: Liver: Enlargement to 19 cm. Mildly increased echotexture without focal parenchymal lesion. Appropriate hepatopetal flow is present in the main portal vein. Gallbladder: Normal wall thickness. No gallstones. Sonographic Shell''s sign is absent. No pericholecystic fluid is present. Biliary Tree: Nondilated. Common bile duct measures 3 mm. Pancreas: Limited evaluation of the head and body is unremarkable. Right kidney: Normal in size and echogenicity. No hydronephrosis or stones. The right kidney measures 11.3 cm in long axis. No free fluid. US/Abdomen Limited IMPRESSION: Mild fatty infiltration of the liver with mild hepatic enlargement. Electronically Signed: Juan R Bassett MD at 21:36 EDT ,
--- NOTE | 2022-08-18 09:53 | US_ITS ---
STUDY: ABDOMINAL ULTRASOUND - ELASTOGRAPHY REASON FOR VISIT: Female, 61 years old. Hepatomegaly. Primary biliary cirrhosis. TECHNIQUE: Liver stiffness measurements were obtained on a [employer] RS 85 ultrasound machine using a CA 1-7 probe following the SRU guidelines. 3 measurements were obtained using a 2-D-SWE method. TheIQR/M was 21% suggesting a quality data set. TECHNICAL QUALITY: Adequate. COMPARISON: Comparison is made with prior study dated June 2021. FINDINGS: Liver: Hepatomegaly. Fatty infiltration of the liver. Median liver stiffness measured 7.7 kPa. Abdomen: There is no demonstrated mass lesion. US/Elastography Parenchyma/Organ IMPRESSION: Liver stiffness measures 7.7 kPa compatible with F2-F3 (Mild to moderate liver fibrosis) Metavir score. Electronically Signed: Ricardo Fowler MD at 13:30 EDT ,
== END | disposition home or self-care (01) ==
PROVIDERS: PCP Internal Medicine; Referring Provider Nurse Practitioner Adult Health; Visit Provider Nurse Practitioner Adult Health
DX: R16.0 Hepatomegaly, not elsewhere classified (principal); K74.3 Primary biliary cirrhosis
CPT/HCPCS: 76705; 76981

== ENCOUNTER → 2022-12-29 | Outpatient (CLI) | payer MEDICARE, MEDICAID, BC, SELFPAY ==
--- NOTE | 2022-12-29 13:45 | SP.MBSS_ITS ---
Modified Barium Swallow Patient Information Study Date: 12/29/22 Study Time: 13:00 Direct Billable Minutes: 80 Total Minutes procedure & reportin Diagnosis: Dysphagia R13.10 Referring Physician: Kael Burrows Reason for Referral: Patient reports difficulty swallowing characterized by pills getting stuck in my throat and choking on liquids daily. Patient denies any history of PNA. Reports hx of esophagus stretching within the last year. Medical History: Anxiety, Arthritis, Arthritis, Bipolar 1 disorder, CPAP (continuous positive airway pressure) dependence, Elevated alkaline phosphatase level, Enlarged liver, Fractures, GERD (gastroesophageal reflux disease), Gastric reflux, H/O emotional problems, High cholesterol, History of back problems, History of echocardiogram, History of edema, History of irregular heartbeat, History of pain when walking, History of stress test, Hyperlipidemia, Leg cramps, Non- smoker, Osteopenia, Post-menopausal, Shortness of breath on exertion, Sleep apnea, UTI (urinary tract infection), Vision abnormalities, Wears glasses Current Diet Ordered: Regular Textures/Thin Liquids Dentition: Natural Teeth Mental Status: WNL Respiratory Status: Oxygenating on Room Air Penetration-Aspiration Scale Penetration-Aspiration Scale: OBJECTIVE ASSESSMENT OF SWALLOW FUNCTION (QUANTITATIVE ? PER TRIAL): PENETRATION / ASPIRATION SCALE (LINDSEY): 1 = does not enter airway 2 = enters airway/above vocal folds/ejected 3 = enters airway/above vocal folds/not ejected 4 = enters airway/contacts vocal folds/ejected 5 = enters airway/contacts vocal folds/not ejected 6 = enters airway/below vocal folds/ejected 7 = enters airway/below vocal folds/not ejected despite effort 8 = enters airway/below vocal folds/no effort VIDEOFLOROSCOPIC SCALE SCORE (LINDSEY): Grade I = aspiration of material that has penetrated into the laryngeal vestibule, intact cough reflex Grade II = aspiration < 10 % of the bolus, intact cough reflex Grade III = aspiration of < 10 % of the bolus, reduced cough reflex or aspiration of > 10 % of the bolus, intact cough reflex Grade IV = aspiration of > 10 % of the bolus, reduced cough reflex Penetration-Aspiration Scale Score Thin Liquid via teaspoon: Result: 1= does not enter airway Thin Liquid via teaspoon Trial 2 : Result: 1= does not enter airway Thin Liquid via cup: Result: 1= does not enter airway Thin Liquid via cup Sequential: Result: 1= does not enter airway Thin liquid via straw: Result: 2= enter airway/above vocal folds/ejected Pudding: Result: 1= does not enter airway Cookie: Result: 1= does not enter airway Pudding Trial 2: Result: 1= does not enter airway Barium Tablet: Result: 1= does not enter airway Oral Phase Labial Seal: No Labial Escape Tongue Control During Bolus Hold: Cohesive bolus between tongue to palatal seal Bolus Preparation/Mastication: Timely and efficient chewing and mashing Bolus Transport/Lingual Motion: Brisk tongue motion Oral Residue: Trace residue lining oral structures Pharyngeal Phase Initiation of Pharyngeal Swallow: Bolus head at posterior laryngeal surgace of epiglottis Soft Palate Elevation: No bolus between soft palate and pharyngeal wall Laryngeal Elevation: Partial superior movement thyroid cart/partial apprx aryt-epig petiole Anterior Hyoid Excursion: Complete anterior movement Epiglottic Movement: Partial inversion Laryngeal Vestibule Closure at Height of Swallow: Incomplete; narrow column of air/contrast in laryngeal vestibule Pharyngeal Stripping Wave: Absent Pharyngoesophageal Segment Opening: Parital distension and partial duration; parital obstruction of flow Tongue Base Retraction: Narrow column of contrast between tongue base & post. pharyngeal wall Pharyngeal Residue: Collection of residue within or on pharyngeal structures Esophageal Phase Esophageal Clearance: Esophageal retention w/ retrograde flow below pharyngoesophageal seg. Diagnosis/Impression Diagnosis: Pharyngoesophageal Dysphagia Impression: The oral phase is characterized by: -cohesive oral bolus -organized mastication of solids -timely A-P bolus transportation, noted occasional use of piecemeal deglutition pattern -liquid undercoats the posterior laryngeal surface of the epiglottis prior to swallow onset The pharyngeal phase is characterized by: -decreased superior and anterior hyoid movement -incomplete epiglottic inversion w/ the tip of the epiglottis resting/curling against the posterior pharyngeal wall rather than fully inverting, resulting in vallecular residue retention post-prandially -the barium tablet was briefly trapped within the vallecula before transferring into the esophagus -decreased pharyngeal contraction w/ little to no pharyngeal stripping wave appreciated -reduced PES distention noted, although this did not impede pharyngoesophageal bolus transit -trace laryngeal vestibule penetration noted 1x w/ large volume bolus (liquid by straw), complete ejection w/ swallow completion -patient was noted to utilize a consistently large volume liquid bolus size, at times requiring piecemeal deglutition The esophageal phase is marked by: -retention of contrast was present in the lower esophagus w/ some retrograde flow -barium tablet trapping appreciated at the GE junction for several seconds prior to successful clearance Recommendations Diet: Regular Textures and Thin Liquids Comment: Medications whole w/ pudding to coat/weight the bolus, followed by a liquid wash Compensatory Strategies: Sitting upright and Remain sitting upright for 30 minutes after PO intake Recommend Repeat Modified Barium Swallow: TBD Need for Skilled Speech Therapy Services: Yes Comment: This patient would benefit from additional dysphagia intervention for implemention of oropharyngeal strengthening exercises to address deficits in hyolaryngeal excursion, pharyngeal contraction and PES distention. Education Completed: 1. Described result of evaluation. and 2. Pt understands evaluation & agrees with goals and treatment plan. Status Active ST Patient: Active Contact Information [facility] Speech Therapy:: Adrienne Eagle M.A., CCC-LOCKER ROOM CLERK Speech-Language Pathologist [facility] [address] [place] [address] [email or web address] [phone]
== END | disposition home or self-care (01) ==
LOC: RAD 12:43
PROVIDERS: PCP Internal Medicine; Referring Provider Internal Medicine Gastroenterology; Visit Provider Internal Medicine Gastroenterology
DX: R13.10 Dysphagia, unspecified (principal)
CPT/HCPCS: 74230; 92611

== ENCOUNTER 2023-02-22 13:00 | Outpatient (RCR) | payer MEDICARE, BC, SELFPAY ==
--- NOTE | 2023-02-04 12:28 | ST ---
[facility] Speech Pathology [address] [place] [address] Modified Barium Swallow Study MR#: [id number] Acct: [id number] Name: DANIEL HOFF Rep #: [id number] : 1960 From: Adrienne Eagle M.A. [facility]-DISTILLATION OPERATOR Modified Barium Swallow Patient Information Study Date: 12/29/22 Study Time: 13:00 Direct Billable Minutes: 80 Total Minutes procedure & reportin Diagnosis: Dysphagia R13.10 Referring Physician: Kael Burrows Reason for Referral: Patient reports difficulty swallowing characterized by pills getting stuck in my throat and choking on liquids daily . Patient denies any history of PNA. Reports hx of esophagus stretching within the last year. Medical History: Anxiety, Arthritis, Arthritis, Bipolar 1 disorder, CPAP (continuous positive airway pressure) dependence, Elevated alkaline phosphatase level, Enlarged liver, Fractures, GERD (gastroesophageal reflux disease), Gastric reflux, H/O emotional problems, High cholesterol, History of back problems, History of echocardiogram, History of edema, History of irregular heartbeat, History of pain when walking, History of stress test, Hyperlipidemia, Leg cramps, Non-smoker, Osteopenia, Post-menopausal, Shortness of breath on exertion, Sleep apnea, UTI (urinary tract infection), Vision abnormalities, Wears glasses Current Diet Ordered: Regular Textures/Thin Liquids Dentition: Natural Teeth Mental Status: WNL Respiratory Status: Oxygenating on Room Air Penetration-Aspiration Scale Penetration-Aspiration Scale: OBJECTIVE ASSESSMENT OF SWALLOW FUNCTION (QUANTITATIVE ? PER TRIAL): PENETRATION / ASPIRATION SCALE (LINDSEY): 1 = does not enter airway 2 = enters airway/above vocal folds/ejected 3 = enters airway/above vocal folds/not ejected 4 = enters airway/contacts vocal folds/ejected 5 = enters airway/contacts vocal folds/not ejected 6 = enters airway/below vocal folds/ejected 7 = enters airway/below vocal folds/not ejected despite effort 8 = enters airway/below vocal folds/no effort VIDEOFLOROSCOPIC SCALE SCORE (LINDSEY): Grade I = aspiration of material that has penetrated into the laryngeal vestibule, intact cough reflex Grade II = aspiration < 10 % of the bolus, intact cough reflex Grade III = aspiration of < 10 % of the bolus, reduced cough reflex or aspiration of > 10 % of the bolus, intact cough reflex Grade IV = aspiration of > 10 % of the bolus, reduced cough reflexPenetration-Aspiration Scale Score Thin Liquid via teaspoon: Result: 1= does not enter airway Thin Liquid via teaspoon Trial 2 : Result: 1= does not enter airway Thin Liquid via cup: Result: 1= does not enter airway Thin Liquid via cup Sequential: Result: 1= does not enter airway Thin liquid via straw: Result: 2= enter airway/above vocal folds/ejected Pudding: Result: 1= does not enter airway Cookie: Result: 1= does not enter airway Pudding Trial 2: Result: 1= does not enter airway Barium Tablet: Result: 1= does not enter airway Oral Phase Labial Seal: No Labial Escape Tongue Control During Bolus Hold: Cohesive bolus between tongue to palatal seal Bolus Preparation/Mastication: Timely and efficient chewing and mashing Bolus Transport/Lingual Motion: Brisk tongue motion Oral Residue: Trace residue lining oral structures Pharyngeal Phase Initiation of Pharyngeal Swallow: Bolus head at posterior laryngeal surgace of epiglottis Soft Palate Elevation: No bolus between soft palate and pharyngeal wall Laryngeal Elevation: Partial superior movement thyroid cart/partial apprx aryt-epig petiole Anterior Hyoid Excursion: Complete anterior movement Epiglottic Movement: Partial inversion Laryngeal Vestibule Closure at Height of Swallow: Incomplete; narrow column of air/contrast in laryngeal vestibule Pharyngeal Stripping Wave: Absent Pharyngoesophageal Segment Opening: Parital distension and partial duration; parital obstruction of flow Tongue Base Retraction: Narrow column of contrast between tongue base & post. pharyngeal wall Pharyngeal Residue: Collection of residue within or on pharyngeal structures Esophageal Phase Esophageal Clearance: Esophageal retention w/ retrograde flow below pharyngoesophageal seg. Diagnosis/Impression Diagnosis: Pharyngoesophageal Dysphagia Impression: The oral phase is characterized by: -cohesive oral bolus -organized mastication of solids -timely A-P bolus transportation, noted occasional use of piecemeal deglutition pattern -liquid undercoats the posterior laryngeal surface of the epiglottis prior to swallow onset The pharyngeal phase is characterized by: -decreased superior and anterior hyoid movement -incomplete epiglottic inversion w/ the tip of the epiglottis resting/curling against the posterior pharyngeal wall rather than fully inverting, resulting in vallecular residue retention post-prandially -the barium tablet was briefly trapped within the vallecula before transferring into the esophagus -decreased pharyngeal contraction w/ little to no pharyngeal stripping wave appreciated -reduced PES distention noted, although this did not impede pharyngoesophageal bolus transit -trace laryngeal vestibule penetration noted 1x w/ large volume bolus (liquid by straw), complete ejection w/ swallow completion -patient was noted to utilize a consistently large volume liquid bolus size, at times requiring piecemeal deglutition The esophageal phase is marked by: -retention of contrast was present in the lower esophagus w/ some retrograde flow -barium tablet trapping appreciated at the GE junction for several seconds prior to successful clearance Recommendations Diet: Regular Textures and Thin Liquids Comment: Medications whole w/ pudding to coat/weight the bolus, followed by a liquid wash Compensatory Strategies: Sitting upright and Remain sitting upright for 30 minutes after PO intake Recommend Repeat Modified Barium Swallow: TBD Need for Skilled Speech Therapy Services: Yes Comment: This patient would benefit from additional dysphagia intervention for implemention of oropharyngeal strengthening exercises to address deficits in hyolaryngeal excursion, pharyngeal contraction and PES distention. Education Completed: 1. Described result of evaluation. and 2. Pt understands evaluation & agrees with goals and treatment plan. Status Active ST Patient: Active Contact Information [facility] Speech Therapy:: Adrienne Eagle M.A. [facility]-DISTILLATION OPERATOR Speech-Language Pathologist [facility] [address] [place] [address] [email or web address] [phone] 12/29/22 1422 <Electronically signed by Adrienne Eagle M.A., CCC-DISTILLATION OPERATOR>
--- NOTE | 2023-02-04 13:12 | HP.SP.EVAL ---
History History Date of Eval: 02/04/23 Attending Doctor: Reason for Referral: HYPERPHARANGEAL CONTRACTION. Medical Diagnosis (from RX): Dysphagia Previous speech therapy: No Other Relevant Medical History/Diagnoses/Surgery: Anxiety, Arthritis, Arthritis, Bipolar 1 disorder, CPAP (continuous positive airway pressure) dependence, Elevated alkaline phosphatase level, Enlarged liver, Fractures, GERD (gastroesophageal reflux disease), Gastric reflux, H/O emotional problems, High cholesterol, History of back problems, History of echocardiogram, History of edema, History of irregular heartbeat, History of pain when walking, History of stress test, Hyperlipidemia, Leg cramps, Non-smoker, Osteopenia, Post-menopausal, Shortness of breath on exertion, Sleep apnea, UTI (urinary tract infection), Vision abnormalities, Wears glasses Medications related to this diagnosis: Pantoprazole ( acid smash hand) x2 daily. Smoking Status: Never smoker Hx Tobacco Use: No Pain Is pain an issue with your current prescribed condition?: No Personal Preferred language: Bulgarian Patient Allergies Allergies Allergies: Allergies lithium Allergy (Verified 08/09/22 09:46) Rash Sulfa (Sulfonamide Antibiotics) Allergy (Verified 08/09/22 09:46) Angioedema ibuprofen [From NeoProfen (ibuprofen lysn)(PF)] Adverse Reaction (Verified 08/09/22 09:46) CP nitrofurantoin [From Macrodantin] Adverse Reaction (Verified 08/09/22 09:46) Nausea/Vom/Diarrhea Subjective Dysphagia Symptoms Reported Symptoms/Problems with: Coughing and Difficulty Swallowing Pills Current Diet Solids Current Diet: Regular Current Diet Liquids Current Liquids: Thin Objective Dysphagia Thin Liquids Administred via: Cup Bolus clearance: fully cleared Gagging: No Cough: throat clear Pharyngeal phase: suspect pharyngeal deficits Comments: Patient has intermittent coughing so unable to determine if due to swallowing or asthma. Swallowing Impairment Contributing Factors to Swallowing Impairment: Reduced Laryngeal Excursion Impact Impact on Safety & Functioning: Risk for Aspiration Recommendations Swallowing Treatment: Yes Diet Texture Recommendations Solids: Regular (Level 7) Liquids: Thin (Level 0) Safety Saftey Precautions/Swallowing Recommendations (Check all that Apply): Upright Position at Least 30 Minutes After Meals and Alternate Liquids & Solids Results Swallowing Within Normal Limits: No Swallowing Diagnosis: Pharyngeal Phase Dysphagia (R13.13) Severity: Mild Modified Barium Results Hx If Applicable Enter into a NOTE MBS Results (from prior exam): 02/04/23 12:28 Speech Therapy by Ant Santos [facility] [address] [place] [address] Modified Barium Swallow Study MR#: [id number] Acct: [id number] Name: DANIEL HOFF Rep #: [id number] : 1960 From: Adrienne Eagle M.A., [facility]-INSURANCE HEALTHCARE REPRESENTATIVE Modified Barium Swallow Patient Information Study Date: 12/29/22 Study Time: 13:00 Direct Billable Minutes: 80 Total Minutes procedure & reportin Diagnosis: Dysphagia R13.10 Referring Physician: Kael Burrows Reason for Referral: Patient reports difficulty swallowing characterized by pills getting stuck in my throat and choking on liquids daily . Patient denies any history of PNA. Reports hx of esophagus stretching within the last year. Medical History: Anxiety, Arthritis, Arthritis, Bipolar 1 disorder, CPAP (continuous positive airway pressure) dependence, Elevated alkaline phosphatase level, Enlarged liver, Fractures, GERD (gastroesophageal reflux disease), Gastric reflux, H/O emotional problems, High cholesterol, History of back problems, History of echocardiogram, History of edema, History of irregular heartbeat, History of pain when walking, History of stress test, Hyperlipidemia, Leg cramps, Non-smoker, Osteopenia, Post-menopausal, Shortness of breath on exertion, Sleep apnea, UTI (urinary tract infection), Vision abnormalities, Wears glasses Current Diet Ordered: Regular Textures/Thin Liquids Dentition: Natural Teeth Mental Status: WNL Respiratory Status: Oxygenating on Room Air Penetration-Aspiration Scale Penetration-Aspiration Scale: OBJECTIVE ASSESSMENT OF SWALLOW FUNCTION (QUANTITATIVE ? PER TRIAL): PENETRATION / ASPIRATION SCALE (LINDSEY): 1 = does not enter airway 2 = enters airway/above vocal folds/ejected 3 = enters airway/above vocal folds/not ejected 4 = enters airway/contacts vocal folds/ejected 5 = enters airway/contacts vocal folds/not ejected 6 = enters airway/below vocal folds/ejected 7 = enters airway/below vocal folds/not ejected despite effort 8 = enters airway/below vocal folds/no effort VIDEOFLOROSCOPIC SCALE SCORE (LINDSEY): Grade I = aspiration of material that has penetrated into the laryngeal vestibule, intact cough reflex Grade II = aspiration < 10 % of the bolus, intact cough reflex Grade III = aspiration of < 10 % of the bolus, reduced cough reflex or aspiration of > 10 % of the bolus, intact cough reflex Grade IV = aspiration of > 10 % of the bolus, reduced cough reflexPenetration-Aspiration Scale Score Thin Liquid via teaspoon: Result: 1= does not enter airway Thin Liquid via teaspoon Trial 2 : Result: 1= does not enter airway Thin Liquid via cup: Result: 1= does not enter airway Thin Liquid via cup Sequential: Result: 1= does not enter airway Thin liquid via straw: Result: 2= enter airway/above vocal folds/ejected Pudding: Result: 1= does not enter airway Cookie: Result: 1= does not enter airway Pudding Trial 2: Result: 1= does not enter airway Barium Tablet: Result: 1= does not enter airway Oral Phase Labial Seal: No Labial Escape Tongue Control During Bolus Hold: Cohesive bolus between tongue to palatal seal Bolus Preparation/Mastication: Timely and efficient chewing and mashing Bolus Transport/Lingual Motion: Brisk tongue motion Oral Residue: Trace residue lining oral structures Pharyngeal Phase Initiation of Pharyngeal Swallow: Bolus head at posterior laryngeal surgace of epiglottis Soft Palate Elevation: No bolus between soft palate and pharyngeal wall Laryngeal Elevation: Partial superior movement thyroid cart/partial apprx aryt-epig petiole Anterior Hyoid Excursion: Complete anterior movement Epiglottic Movement: Partial inversion Laryngeal Vestibule Closure at Height of Swallow: Incomplete; narrow column of air/contrast in laryngeal vestibule Pharyngeal Stripping Wave: Absent Pharyngoesophageal Segment Opening: Parital distension and partial duration; parital obstruction of flow Tongue Base Retraction: Narrow column of contrast between tongue base & post. pharyngeal wall Pharyngeal Residue: Collection of residue within or on pharyngeal structures Esophageal Phase Esophageal Clearance: Esophageal retention w/ retrograde flow below pharyngoesophageal seg. Diagnosis/Impression Diagnosis: Pharyngoesophageal Dysphagia Impression: The oral phase is characterized by: -cohesive oral bolus -organized mastication of solids -timely A-P bolus transportation, noted occasional use of piecemeal deglutition pattern -liquid undercoats the posterior laryngeal surface of the epiglottis prior to swallow onset The pharyngeal phase is characterized by: -decreased superior and anterior hyoid movement -incomplete epiglottic inversion w/ the tip of the epiglottis resting/curling against the posterior pharyngeal wall rather than fully inverting, resulting in vallecular residue retention post-prandially -the barium tablet was briefly trapped within the vallecula before transferring into the esophagus -decreased pharyngeal contraction w/ little to no pharyngeal stripping wave appreciated -reduced PES distention noted, although this did not impede pharyngoesophageal bolus transit -trace laryngeal vestibule penetration noted 1x w/ large volume bolus (liquid by straw), complete ejection w/ swallow completion -patient was noted to utilize a consistently large volume liquid bolus size, at times requiring piecemeal deglutition The esophageal phase is marked by: -retention of contrast was present in the lower esophagus w/ some retrograde flow -barium tablet trapping appreciated at the GE junction for several seconds prior to successful clearance Recommendations Diet: Regular Textures and Thin Liquids Comment: Medications whole w/ pudding to coat/weight the bolus, followed by a liquid wash Compensatory Strategies: Sitting upright and Remain sitting upright for 30 minutes after PO intake Recommend Repeat Modified Barium Swallow: TBD Need for Skilled Speech Therapy Services: Yes Comment: This patient would benefit from additional dysphagia intervention for implemention of oropharyngeal strengthening exercises to address deficits in hyolaryngeal excursion, pharyngeal contraction and PES distention. Education Completed: 1. Described result of evaluation. and 2. Pt understands evaluation & agrees with goals and treatment plan. Status Active ST Patient: Active Contact Information [facility] Speech Therapy:: Adrienne Eagle M.A. [facility] REPRESENTATIVE Speech-Language Pathologist [address] [address] [email or web address] [phone] 12/29/22 1422 <Electronically signed by Adrienne Eagle M.A. [facility]-INSURANCE HEALTHCARE REPRESENTATIVE> Initialized on 02/04/23 12:28 - END OF NOTE Reference: Neuro-QoL instrument Radiation Oncology Patient Plan Plan Plan: Dysphagia therapy is recommended for education regarding swallow exercises and strategies for safer swallowing. Recommendations Treatment Warranted: Yes Treatment Warranted: Dysphagia Progress Prognosis: Good Frequency Frequency: 1x/Week Duration: 2x then again in April Visits in this POC: 3 Patient/Family Goal Patient/Family Goal: Patient stated she would like to swallow correctly and not cough. Goals that are Established Determination:: Goals will be added/modified as deemed necessary and appropriate. Therapy will be discontinued when results of re-evaluation indicate therapy is no longer needed or lack of progress has been documented. Goal #1-5 Goal #1: The Patient will demonstrate and utilize recommended velopharyngeal and oropharyngeal strengthening exercises to facilitate improved velopharyngeal and oropharyngeal strength and coordination with minimal cueing and prompting provide by the clinician, across 3 to 3 sessions. Goal #2: The Patient will tolerate the least restrictive means of nutrition to facilitate adequate hydration/nutrition with optimum safety and efficiency of swallowing function during P.O. intake without overt signs and symptoms of aspiration. Education Patient has Indicated that the Following Identified Educational Needs: None The Patient has indicated that they have no educational or learning abilities that may effect their care.: Yes Patient Instruction Patient Education: Diagnosis, Treatment Plan, Safety Precautions, Diet Level and Home Exercise Program Person Taught: Patient and Significant Other Teaching Method: Discussion Response to teaching: Verbalize understanding
--- NOTE | 2023-06-20 13:27 | HP.SP.DC ---
ST Discharge Summary Discharged: Discharge: Lexi York was evaluated on 02/04/23 with therapy recommended for dysphagia Two sessions after evaluation in January which she completed then a follow up in April 2023. She did not attend any sessions after January. As of today, June 20, 2023, no further visited have been attended or scheduled. Please see daily notes for last known abilities. Patient was able to independently complete oropharyngeal exercises. She took thin liquids with no overt signs or symptoms of aspiration during the last session. Thank you for allowing me to participate in the care of this patient.
== END 2023-02-22 19:00 | disposition home or self-care (01) ==
LOC: SP 13:00
PROVIDERS: PCP Internal Medicine; Visit Provider Internal Medicine Gastroenterology
DX: R13.10 Dysphagia, unspecified (principal)
CPT/HCPCS: 92507; 92526; 92610

== ENCOUNTER → 2023-06-01 | Outpatient (CLI) | payer MEDICARE, BC, SELFPAY ==
[2023-06-01 17:40] LABS: Hematocrit 37.1 % (37-47); Mean Corp Hgb Conc 32.3 g/dL (32-36); Mean Corpuscular Hgb 26.7 pg (27.0-32.0); Mean Corpuscular Volume 82.4 fL (81-99); Mean Platelet Vol. 11.4 fl (6.2-12.0); Platelet Count 312 K/mm3 (150-450); RBC Distribution Width CV 16.5 % (11.6-14.6); RBC Distribution Width SD 49.7 fl (35.1-43.9); White Blood Count 9.7 K/mm3 (4.4-11.0)
[2023-06-01 18:17] LABS: AST(SGOT) 19 U/L (15-37); Alanine Aminotransfer ALT/SGPT 30 U/L (13-56); Albumin, Serum 3.6 g/dL (3.2-5.0); Alkaline Phosphatase 126 U/L (45-117); Anion Gap 6 (5-15); BUN 28 mg/dL (7-18); BUN/Creat Ratio 30.8 RATIO (10-20); Calcium,Total 9.4 mg/dL (8.5-10.1); Chloride 101 mmol/L (98-107); Creatinine, Serum 0.91 mg/dL (0.55-1.02); EST Glomerular Filtration Rate 66 mL/min (>60); Est Glom Filt Rate - Afr Amer 80 mL/min (>60); GGTP 21 U/L (5-55); Globulin 3.7 g/dL (2.2-4.2); Glucose 97 mg/dL (74-106); Potassium 3.5 mmol/L (3.5-5.1); Protein, Total 7.3 g/dL (6.4-8.2); Sodium Level 134 mmol/L (136-145)
== END | disposition home or self-care (01) ==
LOC: LAB 14:57 → MTLAB 15:21
PROVIDERS: PCP Internal Medicine; Referring Provider Internal Medicine Gastroenterology; Visit Provider Internal Medicine Gastroenterology
DX: K76.0 Fatty (change of) liver, not elsewhere classified (principal)
CPT/HCPCS: 36415; 80053; 82977; 85027

== ENCOUNTER 2023-07-20 11:41 | Emergency (ER) | payer MEDICARE, BC, SELFPAY ==
[2023-07-20] VITALS (14 sets, daily range): BP systolic 109–128; BP diastolic 52–79; PULSE 78–86; RESP 13–28; TEMP 36.3–36.6; O2SAT 94–98; BMI 29.7
--- NOTE | 2023-07-20 12:05 | EDS_ITS ---
HPI History of Present Illness Chief Complaint: Chest Other Informant: patient Onset/Context/Timing Onset: Yesterday Mechanism/Context: Fall Quality of Pain: Sharp Location: Thoracic spine, chest Worsened by: Certain movements Relieved by: Possible Tylenol Narrative Narrative: Patient presents with injury to her back and chest that began after a fall last night. Patient states she was on a ladder taking down curtains. Patient states she missed the last step of the ladder and fell. Patient states she fell backwards and hit her back and head. Patient denies any loss of consciousness. Patient states she also hit her tailbone. Patient describes her pain as sharp. Patient states it is worse with certain movements. Patient states she took Tylenol last night and was able to fall asleep. Patient is unsure if this actually helped her pain. [facility] Medical History Anxiety Arthritis Arthritis Bipolar 1 disorder Bipolar disorder CPAP (continuous positive airway pressure) dependence Elevated alkaline phosphatase level Enlarged liver Fractures Gastric reflux GERD (gastroesophageal reflux disease) H/O emotional problems High cholesterol History of back problems History of echocardiogram History of edema History of irregular heartbeat History of pain when walking History of stress test Hyperlipidemia Leg cramps Non-smoker Osteopenia Post-menopausal Shortness of breath on exertion Sleep apnea UTI (urinary tract infection) Vision abnormalities Wears glasses Home Medications aripiprazole 15 mg tablet (Abilify) 15 mg PO DAILY 09/02/19 [History Last Taken Unknown] atorvastatin 20 mg tablet 20 mg PO DAILY 09/02/19 [History Last Taken Unknown] benztropine 2 mg tablet 1 mg PO DAILY PRN PRN Anxiety 09/02/19 [History Last Taken Unknown] calcium carbonate 600 mg calcium (1,500 mg) tablet 630 mg PO TID 09/02/19 [History Last Taken Unknown] ergocalciferol (vitamin D2) 1,250 mcg (50,000 unit) capsule 50,000 unit PO Q21D 02/06/20 [History Last Taken Unknown] mecobalamin (vitamin B12) 1,000 mcg chewable tablet 1,000 mcg PO DAILY 02/03/21 [History Last Taken Unknown] cholecalciferol (vitamin D3) 25 mcg (1,000 unit) capsule (Vitamin D3) 25 mcg PO QWEEK 10/02/21 [History Last Taken Unknown] ursodiol 500 mg tablet 500 mg PO BID #180 tabs 02/10/22 [Rx Last Taken Unknown] acetaminophen 500 mg tablet 1,000 mg (2 x 500 mg) PO Q8 Pain 30 days #180 tabs 02/16/22 [Rx Last Taken Unknown] aspirin 81 mg chewable tablet 81 mg PO DAILY@0800 Postop DVT prophylaxis 30 days #60 tabs 02/16/22 [Rx Last Taken Unknown] pantoprazole 40 mg tablet,delayed release 40 mg PO DAILY 08/09/22 [History Last Taken Unknown] Allergy/AdvReac Type Severity Reaction Status Date / Time lithium Allergy Rash Verified 07/20/23 11:46 Sulfa (Sulfonamide Allergy Angioedema Verified 07/20/23 11:46 Antibiotics) ibuprofen AdvReac CP Verified 07/20/23 11:46 [From NeoProfen (ibuprofen lysn)(PF)] nitrofurantoin AdvReac Nausea/Vom/ Verified 07/20/23 11:46 [From Macrodantin] Diarrhea Family History (Reviewed 08/09/22 @ 09:50 by Anahi Eastman [employer], [employer]) Other Anemia Arthritis Bleeding disorder Cancer Hyperlipidemia Hypertension Thyroid disorder Surgical History H/O foot surgery H/O knee surgery History of tonsillectomy Hx of tubal ligation Social History Smoking Status: Never smoker alcohol intake: current substance use type: does not use ROS ROS ED Constitutional Constitutional ED: Denies chills or fever(s) Eyes Eyes: Denies blurry vision or change in vision ENT ENT ED: Denies rhinorrhea or sore throat Cardiovascular Cardiovascular: Reports chest pain; Denies palpitations Respiratory/Chest Respiratory/Chest: Reports dyspnea; Denies cough Gastrointestinal Gastrointestinal: Denies nausea or vomiting Genitourinary Genitourinary ED: Denies dysuria or hematuria Musculoskeletal Musculoskeletal: Reports back pain; Denies neck pain Integumentary Denies abscess or rash Neurologic Neurologic: Denies headache(s) or weakness Allergic/Immunologic Allergic/Immunologic ED: Denies mouth swelling or urticaria EXAM Physical Exam Const Vital Signs: 07/20/23 11:42 07/20/23 11:43 07/20/23 13:30 Temperature 97.4 F L 97.4 F L Temperature Source Temporal Temporal Pulse Rate 84 84 82 Respiratory Rate 16 16 16 Blood Pressure 128/67 H 128/67 H 117/52 L Blood Pressure Mean 87 87 69 Pulse Ox 98 98 95 Oxygen Delivery Method Room Air Room Air Room Air 07/20/23 14:30 07/20/23 14:40 Temperature Temperature Source Pulse Rate 83 79 Respiratory Rate 19 H 16 Blood Pressure 121/71 H Blood Pressure Mean 87 Pulse Ox 96 97 Oxygen Delivery Method Room Air Positive well nourished and well developed General Appearance ED: well developed and NAD HEENT atraumatic Neck full ROM Chest Wall Chest Narrative: There is tenderness to palpation over the anterior chest. There is also tenderness to palpation of the thoracic spine and paraspinal muscles. There is no bony crepitance or step-off noted. Resp normal respiratory effort and clear to auscultation bilaterally Cardio regular rhythm Rate: regular rate GI non-tender and non-distended Palpation: soft Back/Spine Thoracic Spine / Upper Back: thoracic spinal tenderness Extremity normal to inspection Neuro oriented x3, CN's II-XII intact bilaterally, moves all extremities, no focal motor deficits and no sensory deficits noted Marty Coma Scale: document GCS findings Spontaneous Obeys Commands Oriented 15 Sensorium / Orientation: alert Motor Exam: strength 5/5 throughout Psych mental status grossly normal MDM MDM MDM Narrative Medical decision making narrative: Differential diagnosis includes thoracic fracture, cervical fracture, closed head injury, intracranial bleeding, pneumothorax, and muscle strain. X-rays of the thoracic spine will be obtained to assess for fracture. CT scan of the bra in will be obtained to assess for intracranial bleeding. CT scan of the cervical spine will be obtained to assess for cervical spine fracture. Radiography Diagnostic Testing: Clinical Impression(s) from Imaging Studies Brain CT 07/20/23 13:14 IMPRESSION: Conclusion/petechial hemorrhage in the posterior right parietal occipital lobe. N.B. : The above Results were Read Back by Ricardo Fowler MD to Dann Oneal DO, and understanding confirmed on 07/20/2023 13:53:09 (ET). Electronically Signed: Ricardo Fowler MD at 13:54 EDT , ADDENDUM: 07/20/23 1401 IMPRESSION: Conclusion/petechial hemorrhage in the posterior right parietal occipital lobe. N.B. : The above Results were Read Back by Ricardo Fowler MD to Dann Oneal DO, and understanding confirmed on 07/20/2023 13:53:09 (ET). Electronically Signed: Ricardo Fowler MD at 13:54 EDT , Cervical Spine CT 07/20/23 13:14 IMPRESSION: Multilevel degenerative changes, as described above. Electronically Signed: Ricardo Fowler MD at 13:57 EDT , Thoracic Spine X-Ray 07/20/23 13:50 IMPRESSION: Increased kyphosis. Multilevel disc space narrowing and spondylosis. Electronically Signed: Ricardo Fowler MD at 14:05 EDT , X-rays of the thoracic spine were obtained. There are 2 views. On my independent patient's, there is no acute fracture. There is some degenerative disc disease noted. There is no rib fracture noted. Radiologist also interpreted the x-rays and agrees. CT scan of the cervical spine was obtained. There are degenerative changes. There is no acute fracture or dislocation noted. There is no spondylolisthesis. This was interpreted by the radiologist and was also independently reviewed by myself. CT scan of the brain was obtained. There is a small petechial hemorrhage in the right posterior parietal/occipital area. There is no midline shift noted. There is no mass effect. This was interpreted by the radiologist and was also independently reviewed by myself. Management Discussion w/another healthcare provider: [employer] Interaction Designer and Radiologist Treatment and Re-Evaluation Narrative: Patient was advised of her findings. Patient was advised of the need for transfer to a trauma center. Patient was agreeable with this. Case was dis cussed with [facility]. Case was discussed with Dr. Gudino at [facility]. He accepted the patient be transferred to the emergency department there is a trauma evaluation. Patient and family understood and were agreeable with the plan. All questions were answered. Discharge Plan Triage Chief Complaint: Chest Other ED Provider: Dann Oneal Dx/Rx/DC Orders Clinical Impression: Cerebral hemorrhage following injury, Fall Prescriptions: No Action mecobalamin (vitamin B12) 1,000 mcg tablet,chewable 1,000 mcg PO DAILY ursodiol 500 mg tablet 500 mg PO BID Qty: 180 3RF pantoprazole 40 mg tablet,delayed release (DR/EC) 40 mg PO DAILY atorvastatin 20 MG tablet 20 mg PO DAILY calcium carbonate 600 MG tablet 630 mg PO TID benztropine 2 MG tablet 1 mg PO DAILY PRN PRN (Reason: Anxiety) aripiprazole [Abilify] 15 MG tablet 15 mg PO DAILY ergocalciferol (vitamin D2) 1,250 mcg (50,000 unit) capsule 50,000 unit PO Q21D cholecalciferol (vitamin D3) [Vitamin D3] 25 mcg (1,000 unit) Capsule 25 mcg PO QWEEK acetaminophen 500 mg Tablet 1,000 mg PO Q8 30 Days Qty: 180 0RF aspirin 81 mg Tablet,Chewable 81 mg PO DAILY@0800 30 Days Qty: 60 0RF Primary Care Provider: Libby Hudson Referrals: Libby Hudson MD [Primary Care Provider] - Disposition Disposition: Acute Care Hospital Discharge Location: [facility]
--- NOTE | 2023-07-20 13:14 | CT_ITS ---
STUDY: CT CERVICAL SPINE WITHOUT CONTRAST REASON FOR EXAM: Female, 62 years old. Trauma. Fall from a ladder. RADIATION DOSAGE (If Supplied By Facility): CTDIvol = ( 13.71 ) mGy, DLP = ( 207.93 ) mGycm TECHNIQUE: High resolution transaxial imaging was performed without contrast material. Sagittal and coronal images were reconstructed. Individualized dose optimization techniques were used for this CT. COMPARISON: None FINDINGS: Normal craniovertebral junction. Normal anterior atlantoaxial articulation. Normal odontoid process. Normal cervical lordosis. Normal vertebral bodies and posterior osseous elements. C2-3: Normal endplates. Normal disc height and morphology. Normal central canal and intervertebral neuroforamina. C3-4: Facet joint osteoarthritis and hypertrophy worse on the left side. Uncovertebral arthrosis. Mild left neural foraminal stenosis. C4-5: Normal endplates. Normal disc height and morphology. Normal central canal and intervertebral neuroforamina. C5-6: Moderate degree of disc space narrowing and anterior spondylosis. C6-7: Disc space narrowing and spondylosis. C7-T1: Normal endplates. Normal disc height and morphology. Normal central canal and intervertebral neuroforamina. Normal visualized soft tissue structures. CT/Spine Cervical without Contras IMPRESSION: Multilevel degenerative changes, as described above. Electronically Signed: Ricardo Fowler MD at 13:57 EDT ,
--- NOTE | 2023-07-20 13:14 | CT_ITS ---
STUDY: CT BRAIN WITHOUT CONTRAST REASON FOR EXAM: Female, 62 years old. Head injury due to a fall from a ladder. RADIATION DOSAGE (If Supplied By Facility): CTDIvol = ( 44.99 ) mGy, DLP = ( 762.36 ) mGycm TECHNIQUE: Transaxial CT imaging of the brain was performed without administration of intravenous contrast material. Individualized dose optimization techniques were used for this CT. COMPARISON: No relevant priors. FINDINGS: Normal soft tissue structures. Normal calvarium. Normal size ventricles and extra-axial spaces for the patient''s age. Normal white matter tracts of the cerebral hemispheres. Normal basal ganglia and thalami. Normal brainstem. Normal cerebellum. There is evidence of a contusion/petechial hemorrhage in the posterior right parietal occipital lobe. There are no findings of an acute ischemic infarction. Mucosal retention cyst or polyp in the inferior lateral wall of the left maxillary sinus. CT/Brain/Head without Contrast IMPRESSION: Conclusion/petechial hemorrhage in the posterior right parietal occipital lobe. N.B. : The above Results were Read Back by Ricardo Fowler MD to Dann Oneal DO, and understanding confirmed on 07/20/2023 13:53:09 (ET). Electronically Signed: Ricardo Fowler MD at 13:54 EDT ,
--- NOTE | 2023-07-20 13:50 | RAD_ITS ---
STUDY: X-RAY - THORACIC SPINE REASON FOR EXAM: Female, 62 years old. Injury/Pain TECHNIQUE: 2 view(s) of the thoracic spine were obtained. COMPARISON: None. FINDINGS: There is an increase in the normal thoracic kyphosis. There is no substantial scoliosis. There is multilevel endplate spondylosis of the thoracic vertebrae. There is multilevel disc space narrowing of the thoracic spine. The soft tissue structures are unremarkable. RAD/Thoracic Spine 2 Views IMPRESSION: Increased kyphosis. Multilevel disc space narrowing and spondylosis. Electronically Signed: Ricardo Fowler MD at 14:05 EDT ,
--- NOTE | 2023-07-20 14:39 | ED.RN ---
[facility] CALLED, ETA 1 HOUR (1530)
--- NOTE | 2023-07-20 15:43 | ED.RN ---
CALLED [facility] FOR AN UPDATED ETA, SPOKE WITH KRYSTYNA. SHE STATED THE CREW IS 15-20 MIN AWAY. (1600)
[2023-07-20] MEDS: Morphine 4 MG/ML Syringe IV (15:57)
[2023-07-20] MEDS: DiphenhydrAMINE 50 MG/ML Syringe 25 MG IV (16:45)
== END 2023-07-20 17:08 | disposition short-term general hospital (02) ==
PROVIDERS: Emergency Provider Emergency Medicine; PCP Internal Medicine; Visit Provider Emergency Medicine
DX: S06.340A Traumatic hemorrhage of right cerebrum without loss of consciousness, initial encounter (principal); W11.XXXA Fall on and from ladder, initial encounter; E78.00 Pure hypercholesterolemia, unspecified; K21.9 Gastro-esophageal reflux disease without esophagitis; R06.00 Dyspnea, unspecified; M47.812 Spondylosis without myelopathy or radiculopathy, cervical region; M47.814 Spondylosis without myelopathy or radiculopathy, thoracic region
CPT/HCPCS: 70450; 72070; 72125; 96374; 96375; 99285; A4216

== ENCOUNTER → 2024-05-15 | Outpatient (CLI) | payer MEDICARE, BC, SELFPAY | END | disposition home or self-care (01) | LOC: SL 12:08 | PROVIDERS: PCP Internal Medicine; Referring Provider Internal Medicine; Visit Provider Internal Medicine | DX: G47.33 Obstructive sleep apnea (adult) (pediatric) (principal) ==